=== PATIENT | female | born 1950 | race Two or more races ===

== ENCOUNTER 2020-02-20 05:55 | Inpatient (IN) | payer MEDICARE, OTHER ==
[~2020-02-20] VITALS: Ht 157.5 cm; Wt 69.4 kg
--- NOTE | 2020-02-20 06:08 | NUR ---
HAILEY C/O ALTERED MENTAL STATUS [id number]. PER FACILITY, PT IS USUALLY AWAKE AND COMBATIVE. PT AAOX0 TACHYCARDIC AND TACHYPNEIC. O2 IS 98% VIA NC 2L. PT APPEARS PALE AND LETHARGIC. PT REACTS ONLY TO PAIN. LFT FOREARM 20 G IV. PT IS CONNECTED TO MONITOR AND POX. CALL LIGHT WITHIN REACH. WILL CONTINUE TO MONITOR
--- NOTE | 2020-02-20 06:10 | NUR ---
URINE COLLECTED AND SENT TO LAB
--- NOTE | 2020-02-20 06:10 | NUR ---
LAB AT BEDSIDE
[2020-02-20] MEDS ORDERED: ACETAMINOPHEN 650 MG/SUPP.RECT RC ONE ×2 (06:17→06:30)
[2020-02-20] MEDS ORDERED: IV NS 0.9% 500 ML IV ONE (06:30)
--- NOTE | 2020-02-20 06:52 | NUR ---
daughter, goldie [phone]
--- NOTE | 2020-02-20 07:17 | NUR ---
urine collected and sent to lab
[2020-02-20 07:39] LABS: CALCIUM, SERUM 10.8 mg/dL (8.5-10.1); CARBON DIOXIDE 25 mmol/L (21-32); CREATININE 4.8 mg/dL (0.6-1.3); GLUCOSE 112 mg/dL (74-106)
[2020-02-20 07:49] LABS: ALANINE AMINOTRANSFERASE 57 U/L (12-78); ALBUMIN 2.7 g/dL (3.4-5.0); ALKALINE PHOSPHATASE 104 U/L (46-116); ASPARTATE AMINOTRANSFERASE 24 U/L (15-37); B-TYPE NATRIURETIC PEPTIDE 731 PG/ML (0-125); BILIRUBIN,TOTAL 0.3 mg/dL (0.2-1.0); SODIUM SERUM 181 mmol/L (136-145); TOTAL PROTEIN, SERUM 6.8 g/dL (6.4-8.2)
[2020-02-20 07:50] LABS: CHLORIDE 142 mmol/L (98-107); POTASSIUM 6.4 mmol/L (3.5-5.1); UREA NITROGEN, BLOOD 199 mg/dL (7-18)
[2020-02-20] MEDS ORDERED: ASCO-352 GT (07:50)
[2020-02-20] MEDS ORDERED: POTA20PA3 GT (07:50)
[2020-02-20] MEDS ORDERED: FAMO20TA8 GT (07:50)
[2020-02-20] MEDS ORDERED: MULT-447 GT (07:50)
[2020-02-20] MEDS ORDERED: NITR0.4T48 SL (07:50)
[2020-02-20] MEDS ORDERED: DOCU50LI GT (07:50)
[2020-02-20] MEDS ORDERED: METO25TA20 GT (07:50)
[2020-02-20] MEDS ORDERED: HEPA50008 SQ (07:50)
[2020-02-20] MEDS ORDERED: FERR300L GT (07:50)
[2020-02-20] MEDS ORDERED: ACET-868 GT (07:50)
[2020-02-20] MEDS ORDERED: HYDR-4384 GT (07:50)
[2020-02-20] MEDS ORDERED: POLY17PO4 GT (07:50)
[2020-02-20] MEDS ORDERED: LISI-603 GT (07:50)
[2020-02-20] MEDS ORDERED: HYDR-4076 GT (07:50)
[2020-02-20 07:53] LABS: C-REACTIVE PROTEIN 0.8 mg/dL (0.0-0.9); CREATINE KINASE, TOTAL 689 U/L (26-192); FERRITIN 149 ng/mL (8-388)
[2020-02-20 08:15] LABS: BASOPHILS % (AUTO) 0.2 % (0.0-2.0); EOSINOPHILS % (AUTO) 0.1 % (0.0-6.0); HEMATOCRIT 33 % (33-45); HEMOGLOBIN 9.6 g/dL (11.5-14.8); MEAN CORPUSCULAR HGB CONC 29 g/dl (31.0-36.0); MEAN CORPUSCULAR VOLUME 111 fL (82-100); MONOCYTES # (AUTO) 0.8 /CMM (0.1-1.30); NEUTROPHILS # (AUTO) 8.2 /CMM (1.8-8.9); NEUTROPHILS % (AUTO) 67.7 % (43.0-81.0); PLATELET COUNT (AUTO) 92 /CMM (150-450); RED BLOOD CELL COUNT(AUTO) 2.93 MIL/uL (4.0-5.2)
--- NOTE | 2020-02-20 08:57 | NUR ---
[facility]
[2020-02-20] MEDS ORDERED: SODIUM BICARBONATE SYR 50 MEQ/50 ML DISP.SYRIN IV ONE (09:00)
[2020-02-20] MEDS ORDERED: ALBUTEROL FS 2.5 MG/3 ML VIAL.NEB NEB ONE (09:00)
[2020-02-20] MEDS ORDERED: FUROSEMIDE 40 MG/4 ML VIAL IV ONE (09:00)
[2020-02-20] MEDS ORDERED: IV NS 0.9% 1,000 ML IV ONE (09:00)
[2020-02-20] MEDS ORDERED: CALCIUM CHLORIDE 1,000 MG/10 ML DISP.SYRIN IV ONE (09:00)
[2020-02-20] MEDS ORDERED: INSULIN REGULAR, HUMAN 100 UNIT/ML 10 ML VIAL IV ONE (09:00)
[2020-02-20] MEDS ORDERED: DEXTROSE 50%-WATER 50 ML DISP.SYRIN IV ONE (09:00)
[2020-02-20] MEDS ORDERED: SODIUM BICARBONATE SYR 50 MEQ/50 ML DISP.SYRIN ONE (09:18)
[2020-02-20] MEDS ORDERED: DEXTROSE 50%-WATER 50 ML DISP.SYRIN ONE (09:18)
[2020-02-20] MEDS ORDERED: INSULIN REGULAR, HUMAN 100 UNIT/ML 10 ML VIAL ONE (09:18)
[2020-02-20] MEDS ORDERED: CALCIUM CHLORIDE 1,000 MG/10 ML DISP.SYRIN ONE (09:18)
[2020-02-20] MEDS ORDERED: FUROSEMIDE 20 MG/2 ML VIAL ONE (09:18)
[2020-02-20 09:40] LABS: D-DIMER 0.58 mg/L(FEU (0.17-0.50)
[2020-02-20 09:53] LABS: BILIRUBIN,URINE SMALL (NEGATIVE); BLOOD, URINE MODERATE Ery/uL (NEGATIVE); COLOR,URINE YELLOW (YELLOW); LEUKOCYTE ESTERASE ,URINE LARGE (NEGATIVE); NITRITE, URINE NEGATIVE (NEGATIVE); PH,URINE 8.5 (5.0-8.0); PROTEIN,URINE >=300 mg/dl (NEGATIVE); UGLUCOSE NEGATIVE (NEGATIVE); UROBILINOGEN,URINE 0.2 EU/dL (0.2)
--- NOTE | 2020-02-20 10:13 | NUR ---
CALLED [facility] [phone] SERAFIN PAGED.
[2020-02-20 10:33] LABS: WBC,URINE TOO NUMEROUS TO COUN /HPF (0-3)
[2020-02-20 10:34] LABS: BACTERIA,URINE Moderate /HPF (None Seen); SQUAMOUS EPITHELIAL CELL,UR Moderate /HPF (None Seen); URINE AMORPHOUS PHOSPHATES Many /HPF (None Seen)
[2020-02-20] MEDS ORDERED: NITROGLYCERIN 0.4 MG/TAB BOTTLE SL PRN (11:00)
[2020-02-20] MEDS ORDERED: hydrALAZINE HCL 25 MG TABLET GT PRN (11:00)
[2020-02-20] MEDS ORDERED: ONDANSETRON HCL/PF 4 MG/2 ML VIAL IVP PRN (11:00)
[2020-02-20] MEDS ORDERED: ZOLPIDEM TARTRATE 5 MG TABLET PO PRN (11:00)
[2020-02-20] MEDS ORDERED: MAG HYDROX/AL HYDROX/SIMETH 30 ML UDC PO PRN (11:00)
[2020-02-20] MEDS ORDERED: HYDROCODONE/APAP 5/325MG TABLET PO PRN (11:00)
[2020-02-20] MEDS ORDERED: ACETAMINOPHEN 325 MG TABLET PO PRN (11:00)
[2020-02-20] MEDS ORDERED: MAGNESIUM HYDROXIDE 30 ML UDC PO PRN (11:00)
[2020-02-20] MEDS ORDERED: Z GUARD REMEDY 2 OZ OINT TP PRN (11:00)
[2020-02-20 11:41] LABS: BILIRUBIN,DIRECT 0.1 mg/dL (0.0-0.2)
--- NOTE | 2020-02-20 11:43 | NUR ---
PT IN BED SLEEPING. NAD NOTED.
--- NOTE | 2020-02-20 12:30 | NUR ---
pharmacy called for medication
[2020-02-20] MEDS ORDERED: CEFTRIAXONE 1 G in IV D5W 50 ML IV ONE (13:00)
[2020-02-20 13:24] LABS: EOSINOPHILS % (MANUAL) 1 % (0-4); LYMPHOCYTES % (MANUAL) 22 % (16-48); MONOCYTES % (MANUAL) 6 % (0-11.0); NEUTROPHILS % (MANUAL) 71 (42-76)
[2020-02-20] MEDS: IV NS 0.9% 1,000 ML IV SCH ×2 (14:11→20:33)
[2020-02-20] MEDS: METOPROLOL TARTRATE 25 MG TABLET GT SCH ×2 (14:12→18:00)
--- NOTE | 2020-02-20 14:13 | NUR ---
LOPRESSOR NOT GIVEN D/T BP IS NOTED @ 92/67.
[2020-02-20] MEDS: HEPARIN SODIUM, PORCINE 5000 UNITS/1 ML VIAL SQ SCH ×2 (14:28→21:26)
--- NOTE | 2020-02-20 15:34 | NUR ---
GOT BED 113-1
--- NOTE | 2020-02-20 16:15 | NUR ---
ISABELLE PT'S DAUGHTER UPDATED REGARDING HER MOTHER.
--- NOTE | 2020-02-20 16:26 | NUR ---
REPORT GIVENT Allie STRONG RN FOR PENNY.
--- NOTE | 2020-02-20 16:38 | NUR ---
PT TRANSPORTED TO [facility] WITH EMT AND RN AT BEDSIDE W/ ACLS PROTOCOL. NAD NOTED.
[2020-02-20 17:00] VITALS: BP 95/63
--- NOTE | 2020-02-20 17:00 | NUR ---
PT RECEIVED IN BED, NONVERBAL. RESPONSIVE TO STRONG TACTILE STIMULI. PT IS ON 4L O2 95-97%. NO RESPIRATORY DISTRESS OR SOB. PT HAS G-TUBE COVERED WITH ABD BINDER. PT HAS LFA 20 AND RIGHT HAND 20 SALINE LOCKED. VITALS 95/63, RESPIRATORY 30, PUSLE 98
[2020-02-20] MEDS ORDERED: VANCOMYCIN 500 MG in IV D5W 100 ML IV PRN (19:30)
--- NOTE | 2020-02-20 19:48 | NUR ---
PT REMAINS IN BED, NONVERBAL. PT HAS NO RESPIRATORY DISTRESS OR SOB. PT ON MONITOR SHOWING ST 100s. LFA AND R HAND IV SITES REMAIN INTACT. NO SIGNS OF INFECTION OR INFILTRATION. BED IN LOCKED LOWEST POSITION, CALL LIGHT WITHIN REACH, ALL SAFETY MEASURES IN PLACE, REPORT GIVEN TO ONCOMING RN FOR PENNY
--- NOTE | 2020-02-20 19:50 | NUR ---
RN ANGIOGRAPHY OPENING NOTES RECEIVED PATIENT IN BED, OBTUNDED NON VERBAL, RESPONDS TO TACTILE/PAINFUL STIMULI. TACHYPNEIC ON OXYGEN AT 4L/MIN VIA NASAL CANNULA, LATEST SPO2 95%. LEFT FOREARM G20/RIGHT HAND G20 IV LINES INTACT AND PATENT, FLUSHING WELL WITH NO BLEEDING OR S/S OF INFILTRATION NOTED. ON CARDIAC MONITORING WITH SINUS TACHYCARDIA AT 105bpm. NO S/S OF PAIN/DISCOMFORT NOTED AT THIS TIME. BED LOW AND LOCKED ON SEMI FOWLERS POSITION. MAINTAINED ON CONTACT/DROPLET ISOLATION FOR COVID19, PROPER HAND WASHING AND ISOLATION PRECAUTIONS OBSERVED. CALL LIGHT IN REACH. WILL CONTINUE TO MONITOR
[2020-02-20 20:00] VITALS: BP 104/65
[2020-02-20] MEDS ORDERED: VANCOMYCIN 0.75 GM in IV D5W 250 ML IV ONE (20:00)
[2020-02-20] MEDS: DOCUSATE SODIUM LIQ 100 MG/10 ML UDC GT SCH (20:20)
[2020-02-20] MEDS: MEROPENEM 500 MG in IV NS 0.9% 50 ML IV SCH (21:45)
[2020-02-21] VITALS: BP 113/73
[2020-02-21 00:06] LABS: ALBUMIN 2.8 g/dL (3.4-5.0); BILIRUBIN,TOTAL 0.3 mg/dL (0.2-1.0); CALCIUM, SERUM 11.1 mg/dL (8.5-10.1); CREATININE 4.3 mg/dL (0.6-1.3); POTASSIUM 4.8 mmol/L (3.5-5.1); TOTAL PROTEIN, SERUM 6.9 g/dL (6.4-8.2)
[2020-02-21 00:11] LABS: THYROID STIMULATING HORMONE 1.576 uIU/mL (0.358-3.74)
--- NOTE | 2020-02-21 00:17 | NUR ---
0017 CRITICAL NA+ 185, CL 145, BUN 180 RELAYED TO BRAYDEN ROOT, AWAITING CALL BACK.
[2020-02-21] MEDS: METOPROLOL TARTRATE 25 MG TABLET GT SCH ×4 (00:50→17:02)
--- NOTE | 2020-02-21 01:45 | NUR ---
0145 BRAYDEN ROOT REPLIED WITH ORDER TO FLUSH GT WITH 150CC FREE WATER EVERY 4 HOURS AND TO KEEP IV FLUIDS ORDERED. ORDER NOTED AND CARRIED OUT.
[2020-02-21 04:00] VITALS: BP 135/66
[2020-02-21] MEDS: HEPARIN SODIUM, PORCINE 5000 UNITS/1 ML VIAL SQ SCH ×2 (04:54→12:38)
[2020-02-21] MEDS: IV NS 0.9% 1,000 ML IV SCH (06:29)
--- NOTE | 2020-02-21 06:40 | NUR ---
SERVICE SPECIALIST CLOSING NOTES PATIENT IN BED, OBTUNDED NON VERBAL, RESPONDS TO TACTILE/PAINFUL STIMULI. AFEBRILE WITH NO S/S OF DISTRESS OBSERVED. LEFT FOREARM G20/RIGHT HAND G20 IV LINES PATENT AND FLUSHING WELL. MAINTAINED ON CARDIAC MONITORING WITH NSR AT 98bpm. NO S/S OF PAIN/DISCOMFORT NOTED AT THIS TIME. BED LOW AND LOCKED ON SEMI FOWLERS POSITION. CALL LIGHT IN REACH. WILL ENDORSE TO MORNING SHIFT FOR PENNY.
--- NOTE | 2020-02-21 07:30 | NUR ---
RN OPENING NOTE - MARIA D Received patient asleep in bed appears calm and relaxed. No signs of distress. On NC 4L tolerating well. Patient eyes remains close when spoke to and response to pain only. Tele reading SR 80-90bpm. Has king catheter draining clear yellow urine. GT feeding Jevity 1.2 @ 65ml/hr tolerating well no residual. Aspirated and auscultated confirmed positive placement. On abdominal binder. Has L forearm #20 flushes well and R hand #20 running NS @ 100ml/hr. No signs of pain or discomfort. Safety measures maintained. Call light within reach. Bed locked and on lowest position. Will cont to monitor,.
[2020-02-21 08:00] VITALS: BP 97/59
[2020-02-21] MEDS: DOCUSATE SODIUM LIQ 100 MG/10 ML UDC GT SCH ×2 (08:52→17:01)
[2020-02-21] MEDS: FERROUS SULFATE UDC 300 MG/5 ML UDC GT SCH (08:52)
[2020-02-21] MEDS: MULTIVITAMINS,THERAGRAN 1 UDTAB TABLET GT SCH (08:52)
[2020-02-21] MEDS: DEXAMETHASONE SOD PHOSPHATE 10 MG/ML VIAL IV SCH (08:52)
[2020-02-21] MEDS: FAMOTIDINE (20 MG) 20 MG TABLET GT SCH (08:52)
[2020-02-21] MEDS: POLYETHYLENE GLYCOL 3350 17 GM POWD.PACK GT SCH (08:52)
[2020-02-21] MEDS: ASCORBIC ACID 500 MG TABLET GT SCH (08:52)
[2020-02-21] MEDS ORDERED: LISINOPRIL (20MG) 20 MG TABLET GT SCH (09:00)
[2020-02-21] MEDS ORDERED: POTASSIUM CHLORIDE 20 MEQ POWDER PACKET GT SCH (09:00)
[2020-02-21 09:48] LABS: BASOPHILS % (AUTO) 0.2 % (0.0-2.0); EOSINOPHILS % (AUTO) 0.1 % (0.0-6.0); HEMATOCRIT 25 % (33-45); HEMOGLOBIN 7.1 g/dL (11.5-14.8); LYMPHOCYTES # (AUTO) 1.1 /CMM (0.8-4.8); LYMPHOCYTES % (AUTO) 15.6 % (20.0-44.0); MEAN CORPUSCULAR HGB CONC 29 g/dl (31.0-36.0); MEAN CORPUSCULAR VOLUME 115 fL (82-100); MONOCYTES # (AUTO) 0.3 /CMM (0.1-1.30); NEUTROPHILS # (AUTO) 5.7 /CMM (1.8-8.9); NEUTROPHILS % (AUTO) 80.1 % (43.0-81.0); PLATELET COUNT (AUTO) 77 /CMM (150-450); RED BLOOD CELL COUNT(AUTO) 2.14 MIL/uL (4.0-5.2); WHITE BLOOD COUNT (AUTO) 7.1 K/uL (4.3-11.0)
--- NOTE | 2020-02-21 10:30 | NUR ---
SPOKE TO HERON DAUGHTER [phone] SHE IS CONSIDERING NOT PUTTING HER MOM BACK TO [place] [place]. INFORMED BOIL OFF MACHINE OPERATOR CLOTH.
[2020-02-21 10:41] LABS: CALCIUM, SERUM 10.5 mg/dL (8.5-10.1); CREATININE 3.8 mg/dL (0.6-1.3); PHOSPHORUS 3.9 mg/dL (2.5-4.9); POTASSIUM 4.8 mmol/L (3.5-5.1)
--- NOTE | 2020-02-21 10:58 | NUR ---
FLU VACCINE ON 12/11/2019 PNEUMONIA VACCINE ON 06/24/2019 GIVEN BY ALEXSANDRAKeven EDWARDS SPOKE TO ESTHER,
[2020-02-21 10:59] LABS: MAGNESIUM 4.1 mg/dL (1.8-2.4)
--- NOTE | 2020-02-21 11:03 | NUR ---
CRITICAL LAB VALUE INFORMED DR REEDER AND DR BETANCOURT AWAITING RESPONSE MAGNESIUM 4.1 SODIUM 182 CHLORIDE 145
[2020-02-21 12:00] VITALS: BP 107/72
--- NOTE | 2020-02-21 13:33 | NUR ---
REPORT GIVEN TO JOYCE STOCKTON FOR PENNY.
--- NOTE | 2020-02-21 13:40 | NUR ---
MALARIOLOGIST NOTE RECEIVED PATIENT FROM [place]. PATIENT IN NO ACUTE DISTRESS. NO SOB NOTED. PATIENT BREATHING IS EVEN AND UNLABORED. PATIENT IN BED RESTING COMFORTABLY. PATIENT BED ALARM IS ON. PATIENT BED IS LOCKED AND IN LOWEST POSITION. CALL LIGHT WITHIN REACH. WILL CONTINUE TO MONITOR.
[2020-02-21 16:00] VITALS: BP 95/50
[2020-02-21] MEDS: IV 1/2NS 1000 ML 1,000 ML IV PRN (17:06)
--- NOTE | 2020-02-21 18:50 | NUR ---
PROOFER BLACK AND WHITE NOTE PATIENT IS IN BED RESTING COMFORTABLY. PATIENT IS IN NO ACUTE DISTRESS. NO SOB NOTED. PATIENTS BREATHING IS EVEN AND UNLABORED. PATIENT IS ON THE POLISHING PAD MOUNTER READING SINUS RHYTHM 70. PATIENT KEPT CLEAN DRY, AND COMFORTABLE THROUGHOUT THE SHIFT. GTUBE PATENT AND INTACT. NO FACIAL GRIMACING NOTED. PATIENTS BED ALARM IS ON. PATIENT BED IS LOCKED AND IN LOWEST POSITION. CALL LIGHT IS WITHIN REACH. ENDORSE TO THE SUPERVISOR COOK HOUSE NURSE FOR PENNY.
--- NOTE | 2020-02-21 19:15 | NUR ---
RN OPENING NOTES PRECEIVED PT AWAKE IN BED. NONVERBAL. ISOLATION PRECAUTIONS IN PLACE FOR COVID POSITIVE RESULT. PT IS ON 4L OF O2 VIA NC. TOLERATING WELL. PT IS NOT EXPERIENCING SOB OR RESP DISTRESS AT THIS TIME. TELE MONITORING IN PLACE. BREATHING IS EVEN. PT SHOWS NSR HEART RATE OF 100 NORMAL TO PT BASELINE. GTUBE AUSCULTATED TO CONFIRM PLACEMENT WITH ANOTHER NURSE. PATENT. JEVITY RUNNING AT 65ML/HR. IV SITE FLUSHED ASEPTICALLY. PT BELONGINGS AT BEDSIDE. SAFETY MEASURES IN PLACE. HOB ELEVATED. SIDE RAILS UP X2. BED LOCKED IN LOWEST POSITION WITH BED ALARM ON. CALL LIGHT WITHIN REACH WILL CONTINUE TO MONITOR.
[2020-02-21 20:00] VITALS: BP 107/65
[2020-02-21] MEDS: MEROPENEM 500 MG in IV NS 0.9% 50 ML IV SCH (22:01)
[2020-02-22] VITALS: BP 98/60
[2020-02-22] MEDS: IV 1/2NS 1000 ML 1,000 ML IV PRN (03:41)
[2020-02-22 04:00] VITALS: BP 108/67
--- NOTE | 2020-02-22 04:00 | NUR ---
RN NOTE RIGHT HAND IV WAS DISLODGED. APPLIED PRESSURE AND DRESSING. NO SIGNS OF INFECTION.
[2020-02-22] MEDS: METOPROLOL TARTRATE 25 MG TABLET GT SCH ×4 (06:00→17:25)
[2020-02-22 06:14] LABS: BASOPHILS % (AUTO) 0.2 % (0.0-2.0); EOSINOPHILS % (AUTO) 0.1 % (0.0-6.0); HEMATOCRIT 26 % (33-45); HEMOGLOBIN 7.7 g/dL (11.5-14.8); LYMPHOCYTES # (AUTO) 0.8 /CMM (0.8-4.8); LYMPHOCYTES % (AUTO) 14.7 % (20.0-44.0); MEAN CORPUSCULAR HGB CONC 30 g/dl (31.0-36.0); MEAN CORPUSCULAR VOLUME 111 fL (82-100); MONOCYTES # (AUTO) 0.2 /CMM (0.1-1.30); MONOCYTES % (AUTO) 2.8 % (2.0-12.0); NEUTROPHILS # (AUTO) 4.6 /CMM (1.8-8.9); NEUTROPHILS % (AUTO) 82.2 % (43.0-81.0); PLATELET COUNT (AUTO) 63 /CMM (150-450); RED BLOOD CELL COUNT(AUTO) 2.33 MIL/uL (4.0-5.2); WHITE BLOOD COUNT (AUTO) 5.6 K/uL (4.3-11.0)
[2020-02-22 06:25] LABS: BILIRUBIN,URINE NEGATIVE (NEGATIVE); BLOOD, URINE MODERATE Ery/uL (NEGATIVE); COLOR,URINE YELLOW (YELLOW); LEUKOCYTE ESTERASE ,URINE LARGE (NEGATIVE); NITRITE, URINE NEGATIVE (NEGATIVE); PROTEIN,URINE 100 mg/dl (NEGATIVE); UGLUCOSE 250 MG/DL mg/dL (NEGATIVE); UROBILINOGEN,URINE 0.2 EU/dL (0.2)
[2020-02-22 06:32] LABS: CREATININE, URINE 38.6 MG/DL (30.0-125.0); URINE TOTAL PROTEIN 124.4 mg/dL (0-11.9)
[2020-02-22 06:46] LABS: BACTERIA,URINE Many /HPF (None Seen); SQUAMOUS EPITHELIAL CELL,UR Few /HPF (None Seen); WBC,URINE 21-50 /HPF (0-3)
[2020-02-22 06:47] LABS: TRIPLE PHOSPHATE CRYSTAL,UR Moderate /HPF (None Seen); URINE AMORPHOUS PHOSPHATES Moderate /HPF (None Seen)
--- NOTE | 2020-02-22 06:53 | NUR ---
RN CLOSING NOTE PATIENT REMAINS IN BED, NO RESPIRATORY DISTRESS NOTED, CONTINUE ON O2 VIA NC AT 4LPM. O2 SAT AT 98%. TELE MONITOR SHOWS SINUS TACHY HR 105. GT PATENT. GT FEEDING OF JEVITY 1.2 TOLERATING WELL, NO RESIDUALS NOTED, FLUSHED WITH 250 ML OF WATER Q6H ORDERED. KEPT HOB ELEVATED. NO S/SX OF ASPIRATION NOTED. IVF 0.45 NS RUNNING AT 100 ML/HR NO SIGNS OF INFILTRATION. VENTURA CATH INDWELLING WELL, CLEAR YELLOW URINE OUTPUT. ALL SAFETY MEASURES IMPLEMENTED PER PROTOCOL, BED LOCKED IN LOWEST POSITION. SIDE RAILS UP. CALL LIGHT WITHIN REACH. WILL ENDORSE TO AM SHIFT FOR PENNY.
--- NOTE | 2020-02-22 07:10 | NUR ---
RN OPENING NOTES RECEIVED PT AWAKE IN BED. NONVERBAL. ISOLATION PRECAUTIONS IN PLACE FOR COVID. ON 4L OF O2 VIA NC SATURATING @98%. NO SOB OR ANY DISTRESS AT THIS TIME. TELE MONITORING SHOWS ST @100S. GTUBE AUSCULTATED TO CONFIRM POSITIVE PLACEMENT. JEVITY 1.2 RUNNING AT 65ML/HR. IV SITE ON RAC #22 INTACT AND PATENT. 1/2 NS RUNNING @100ML/HR. SAFETY MEASURES IN PLACE. CALL LIGHT WITHIN REACH. HOB ELEVATED. BED LOCKED AND IN LOWEST POSITION WITH SIDE RAILS UP X2. BED ALARM ON. WILL CONTINUE TO MONITOR.
[2020-02-22 07:18] LABS: CALCIUM, SERUM 10.3 mg/dL (8.5-10.1); CREATININE 3.3 mg/dL (0.6-1.3); POTASSIUM 4.4 mmol/L (3.5-5.1)
[2020-02-22 08:00] VITALS: BP 95/50
[2020-02-22] MEDS: POLYETHYLENE GLYCOL 3350 17 GM POWD.PACK GT SCH (08:55)
[2020-02-22] MEDS: DEXAMETHASONE SOD PHOSPHATE 10 MG/ML VIAL IV SCH (08:55)
[2020-02-22] MEDS: DOCUSATE SODIUM LIQ 100 MG/10 ML UDC GT SCH ×2 (08:55→17:04)
[2020-02-22] MEDS: FAMOTIDINE (20 MG) 20 MG TABLET GT SCH (08:55)
[2020-02-22] MEDS: ASCORBIC ACID 500 MG TABLET GT SCH (08:55)
[2020-02-22] MEDS: FERROUS SULFATE UDC 300 MG/5 ML UDC GT SCH (08:55)
[2020-02-22] MEDS: MULTIVITAMINS,THERAGRAN 1 UDTAB TABLET GT SCH (08:55)
[2020-02-22 09:49] LABS: BAND % (MANUAL) 2 % (0.0-5.0); NEUTROPHILS % (MANUAL) 72 (42-76)
[2020-02-22 09:50] LABS: EOSINOPHILS % (MANUAL) 1 % (0-4); LYMPHOCYTES % (MANUAL) 16 % (16-48); MONOCYTES % (MANUAL) 6 % (0-11.0); MYELOCYTES % 1 % (0-0)
[2020-02-22 12:00] VITALS: BP 124/58
[2020-02-22 12:04] LABS: EOSINOPHIL,URINE None Seen
[2020-02-22 16:00] VITALS: BP 108/61
--- NOTE | 2020-02-22 17:00 | NUR ---
RN NOTE BP OF 108/61. INFORMED DR. BERNSTEIN. TO HOLD LOPRESSOR. CARRIED OUT. WILL CONTINUE TO MONITOR
[2020-02-22] MEDS: IV D5W 1,000 ML IV PRN (17:53)
--- NOTE | 2020-02-22 19:28 | NUR ---
RN CLOSING NOTES PT RESTING IN BED. NONVERBAL. ISOLATION PRECAUTIONS IN PLACE FOR COVID. ON 4L OF O2 VIA NC SATURATING @98%. NO SOB OR ANY DISTRESS AT THIS TIME. TELE MONITORING SHOWS ST @100S. GTUBE AUSCULTATED TO CONFIRM POSITIVE PLACEMENT. JEVITY 1.2 RUNNING AT 65ML/HR. IV SITE ON RAC #22 INTACT AND PATENT. D5W @125ML/HR. SAFETY MEASURES IN PLACE. CALL LIGHT WITHIN REACH. HOB ELEVATED. BED LOCKED AND IN LOWEST POSITION WITH SIDE RAILS UP X2. BED ALARM ON. WILL ENDORSE TO NIGHT NURSE FOR PENNY.
[2020-02-22 20:00] VITALS: BP 128/66
--- NOTE | 2020-02-22 20:00 | NUR ---
RN NOTE RECEIVED PT IN BED, PT IS NON VERBAL AND OPENS EYES TO TOUCH, PT IS ON 4 L VIA NC SATING 100, PT IS ON TELE MONITOR SHOWING SR HR IN 90s. SAFETY MEASURES IN PLACE.
[2020-02-22] MEDS: CEFTRIAXONE 1 G in IV D5W 50 ML IV SCH (21:37)
[2020-02-23] VITALS: BP 125/66
[2020-02-23] MEDS: METOPROLOL TARTRATE 25 MG TABLET GT SCH ×4 (00:16→17:41)
--- NOTE | 2020-02-23 02:00 | NUR ---
RN NOTES: RECEIEVED ENDORSEMENT FROM JUAN ANTONIO, ASLEEP NON, VERBAL PATIENT, WITH O2 AT 4L/MIN VIA NC SR-80'S, SKIN INTACT, ON PEG FEED OF JEVITY 1.2 AT 65 ML/HR, ON VENTURA CATH DRAINING INTO YELLOWISH COLORED URINE AT 100CC LEVEL. [id number] INTACT WITH IVF OF D5W AT 125 ML/HR ONGOING, NON LABORED BREATHING, KEPT ON SEMI FOWLERS POSITION, FALL, SAFETY AND ASPIRATION PRECAUTION OBSERVED.BED LOW AND LOCKED, CALL LIGHT WITHIN EASY REACH.
--- NOTE | 2020-02-23 02:02 | NUR ---
RN NOTE REPORT GIVEN FOR TO THE NURSE FOR PENNY.
[2020-02-23] MEDS: JEVITY 1.2 CAL 1,000 ML BOTTLE GT PRN ×2 (02:19→21:59)
--- NOTE | 2020-02-23 02:24 | NUR ---
RN NOTES: JEVITY 1.2 AT 65 ML/HR VIA FEEDING PUMP CONSUMED AND REPLACED WITH NEW BOTTLE, UNABLE TO SCAN, MANUALLY ENTERED THE BARCODE. -FEEDING START AT AROUND 0220.
[2020-02-23] MEDS: IV D5W 1,000 ML IV PRN ×3 (02:41→21:59)
--- NOTE | 2020-02-23 02:42 | NUR ---
RN NOTES: IVF OF D5W AT 125 ML/HR CONSUMED, NEW BOTTLE STARTED AT 0241.
--- NOTE | 2020-02-23 03:15 | NUR ---
RN NOTES: TURNING AND REPOSITIONING DONE, MORNING CARE DONE, BLE OFF LOADED. ASPIRATION PRECAUTION OBSERVED.
[2020-02-23 04:00] VITALS: BP 110/56
--- NOTE | 2020-02-23 04:12 | NUR ---
RN NOTES: AT 0400 ENDORSED BACK TO JUAN ANTONIO.
[2020-02-23 06:44] LABS: BASOPHILS % (AUTO) 0.1 % (0.0-2.0); HEMATOCRIT 22 % (33-45); LYMPHOCYTES # (AUTO) 0.8 /CMM (0.8-4.8); LYMPHOCYTES % (AUTO) 10.5 % (20.0-44.0); MEAN CORPUSCULAR HGB CONC 31 g/dl (31.0-36.0); MEAN CORPUSCULAR VOLUME 107 fL (82-100); MONOCYTES # (AUTO) 0.1 /CMM (0.1-1.30); MONOCYTES % (AUTO) 1.5 % (2.0-12.0); NEUTROPHILS # (AUTO) 6.3 /CMM (1.8-8.9); NEUTROPHILS % (AUTO) 87.9 % (43.0-81.0); PLATELET COUNT (AUTO) 62 /CMM (150-450); RED BLOOD CELL COUNT(AUTO) 2.09 MIL/uL (4.0-5.2); WHITE BLOOD COUNT (AUTO) 7.2 K/uL (4.3-11.0)
[2020-02-23 07:02] LABS: ALBUMIN 2.2 g/dL (3.4-5.0); BILIRUBIN,TOTAL 0.3 mg/dL (0.2-1.0); CALCIUM, SERUM 9.6 mg/dL (8.5-10.1); CREATININE 2.7 mg/dL (0.6-1.3); MAGNESIUM 3.2 mg/dL (1.8-2.4); PHOSPHORUS 3.5 mg/dL (2.5-4.9); TOTAL PROTEIN, SERUM 6.2 g/dL (6.4-8.2)
--- NOTE | 2020-02-23 07:20 | NUR ---
RN OPENING NOTE - MARIA D Received patient asleep in bed appears calm and relaxed. No signs of distress. On NC 4L o2 sat 96%. Patient is obtunded. Smiled but non verbal. Tele reading SR 90-100bpm. Mabry catheter draining cloudy yellow urine by gravity. On GT feeding Jevity 1.2 @ 65ml/hr to be turned off at 8am and turned back ON at 12noon. Patient has R Hand #22 running D5W @125ml/hr. Safety measures maintained. Bed locked and on lowest position. Siderails up x2. Hob elevated. Will cont to monitor.
--- NOTE | 2020-02-23 07:36 | NUR ---
PT REMAINED STABLE DURING MY SHIFT NO ACUTE CHANGES REPORT GIVEN TO INCOMING SHIFT FOR PENNY.
[2020-02-23 08:00] VITALS: BP 114/50
[2020-02-23] MEDS: ASCORBIC ACID 500 MG TABLET GT SCH (08:44)
[2020-02-23] MEDS: DOCUSATE SODIUM LIQ 100 MG/10 ML UDC GT SCH ×2 (08:44→17:41)
[2020-02-23] MEDS: FAMOTIDINE (20 MG) 20 MG TABLET GT SCH (08:44)
[2020-02-23] MEDS: MULTIVITAMINS,THERAGRAN 1 UDTAB TABLET GT SCH (08:44)
[2020-02-23] MEDS: FERROUS SULFATE UDC 300 MG/5 ML UDC GT SCH (08:44)
[2020-02-23] MEDS: POLYETHYLENE GLYCOL 3350 17 GM POWD.PACK GT SCH (08:44)
[2020-02-23] MEDS: DEXAMETHASONE SOD PHOSPHATE 10 MG/ML VIAL IV SCH (08:45)
[2020-02-23 09:18] LABS: PTH, INTACT 79 pg/mL (15-65)
[2020-02-23 12:00] VITALS: BP 134/71
[2020-02-23 15:10] LABS: BAND % (MANUAL) 2 % (0.0-5.0); LYMPHOCYTES % (MANUAL) 11 % (16-48); MONOCYTES % (MANUAL) 3 % (0-11.0); NEUTROPHILS % (MANUAL) 84 (42-76)
[2020-02-23 16:00] VITALS: BP 133/85
--- NOTE | 2020-02-23 19:21 | NUR ---
RN CLOSING NOTE - TELE Patient was transferred to [facility] in stable condition. On NC 4L tolerating well. Jevity 1.2 running 65ml/hr has abdominal binder. Patient has R hand #22 running D5W @ 125ml/hr. All due meds given. Vital signs within normal limits. Kept clean and comfortable. Endorsed to security shift manager nurse for noelle.
--- NOTE | 2020-02-23 19:30 | NUR ---
RECEIVED PT ON BED OBTUNDED ABLE TO OPEN EYES TO DEEP PAIN NOT RESPONDING TO ANY COMMAND, ON O2 4L VIA NC SPO2@ 91% NO PAIN NOTED, HAVE GTUBE RESIDUAL 10ML PLACEMENT WAS CHECKED WITH ONGOING JEVITY @ 65ML/HR HAVE RHAND IV # 22 WITH PATENT AND FLUSHED WITH ONGOING D5W@125ML/HR INFUSING WELL TELE MONITOR READS SINUS TACHY 110'S DROPLET ISOALTION MAINTAINED FOR COVID 19 BED ON LOWEST POSITION AND LCOKED SIDE RAILS UP X2 WILL CONT TO MONITOR
[2020-02-23 20:00] VITALS: BP_SYST 112; BP_DIAS 61; BP_DIAS 91
[2020-02-23] MEDS: CEFTRIAXONE 1 G in IV D5W 50 ML IV SCH (21:49)
[2020-02-24] VITALS: BP 121/55
[2020-02-24] MEDS: METOPROLOL TARTRATE 25 MG TABLET GT SCH ×4 (01:06→17:48)
--- NOTE | 2020-02-24 01:30 | NUR ---
PT SATURATION GOES DOWN TO 87% AND PT IS MORE TACHYPNIC WITH RR OF 43 RT PUT HER ON NON REBREATHER MASK 15L SPO2 GOES BACK TO 95% BUT PT RR STILL ON 40'S REPORTED IT TO ONCMIGEL LY PRESSURE CONTROLLER WITH NO NEW ORDER, WILL CONT TO MONITOR THE PT
[2020-02-24 04:00] VITALS: BP 113/56
[2020-02-24] MEDS: IV D5W 1,000 ML IV PRN ×2 (06:43→15:50)
--- NOTE | 2020-02-24 07:30 | NUR ---
PT ON BED ASLEEP STILL ON NON REBREATHER 15L SPO2 98% BUT STILL TACHYPNIC WITH RR 46, NO PAIN NOTED, ALL NEEDS ATTENDED TELE MONITOR READS SINUS TACHY 110'S DROPLET ISOLATION MAINTAINED BED ON LOWEST POSITION AND LOCKED SIDE RAILS UP X2 WILL ENDORSED TO AM SHIFT NURSE
--- NOTE | 2020-02-24 07:55 | NUR ---
PT RECEIVED IN BED, OBTUNDED, NONVERBAL. PT ON 15L NONREBREATHER, O2 SATURATION HIGH 90's. NO RESPIRATORY DISTRESS. PT ON MONITOR SHOWING ST. JEVITY RUNNING THROUGH G-TUBE AT 65 ML/HR. PT HAS RIGHT HAND #22 RUNNING D5W. MIDLINE TO BE REQUESTED, IF NEED FOR BLOOD TRANSFUSION. BED IN LOCKED LOWEST POSITION, CALL LIGHT WITHIN REACH, ALL SAFETY MEASURES IN PLACE. WILL CONTINUE TO MONITOR CLOSELY
[2020-02-24 08:00] VITALS: BP 126/86
[2020-02-24 08:10] LABS: BASOPHILS % (AUTO) 0.1 % (0.0-2.0); HEMATOCRIT 24 % (33-45); HEMOGLOBIN 7.4 g/dL (11.5-14.8); LYMPHOCYTES # (AUTO) 0.8 /CMM (0.8-4.8); LYMPHOCYTES % (AUTO) 11.2 % (20.0-44.0); MEAN CORPUSCULAR HGB CONC 31 g/dl (31.0-36.0); MEAN CORPUSCULAR VOLUME 110 fL (82-100); MONOCYTES # (AUTO) 0.1 /CMM (0.1-1.30); NEUTROPHILS # (AUTO) 6.6 /CMM (1.8-8.9); NEUTROPHILS % (AUTO) 86.7 % (43.0-81.0); PLATELET COUNT (AUTO) 55 /CMM (150-450); RED BLOOD CELL COUNT(AUTO) 2.22 MIL/uL (4.0-5.2); WHITE BLOOD COUNT (AUTO) 7.6 K/uL (4.3-11.0)
[2020-02-24 08:57] LABS: CALCIUM, SERUM 9.7 mg/dL (8.5-10.1); CREATININE 2.4 mg/dL (0.6-1.3); POTASSIUM 4.3 mmol/L (3.5-5.1)
[2020-02-24] MEDS: POLYETHYLENE GLYCOL 3350 17 GM POWD.PACK GT SCH (09:29)
[2020-02-24] MEDS: FERROUS SULFATE UDC 300 MG/5 ML UDC GT SCH (09:30)
[2020-02-24] MEDS: MULTIVITAMINS,THERAGRAN 1 UDTAB TABLET GT SCH (09:30)
[2020-02-24] MEDS: FAMOTIDINE (20 MG) 20 MG TABLET GT SCH (09:30)
[2020-02-24] MEDS: DOCUSATE SODIUM LIQ 100 MG/10 ML UDC GT SCH ×2 (09:30→17:48)
[2020-02-24] MEDS: DEXAMETHASONE SOD PHOSPHATE 10 MG/ML VIAL IV SCH (09:30)
[2020-02-24] MEDS: ASCORBIC ACID 500 MG TABLET GT SCH (09:31)
[2020-02-24 11:59] LABS: C-REACTIVE PROTEIN > 12.0 mg/dL (0.0-0.9)
[2020-02-24 12:00] VITALS: BP 119/70
[2020-02-24 12:56] LABS: BAND % (MANUAL) 3 % (0.0-5.0); LYMPHOCYTES % (MANUAL) 14 % (16-48); MONOCYTES % (MANUAL) 4 % (0-11.0); NEUTROPHILS % (MANUAL) 79 (42-76)
--- NOTE | 2020-02-24 14:20 | NUR ---
pt placed on high flow nasal canula per physician order. pt spo2 decreased. rn aware. spo2 increased to 90% with hfnc Addendum: 02/24/20 at 1632 by CASSIA HERNÁNDEZ RT Amended: Links added.
--- NOTE | 2020-02-24 14:59 | NUR ---
PT ON 15L NRB O2 SAT 80-84%. YUNG AND LILLI AWARE. HIGH FLOW O2 ORDERED BY YUNG. PT O2 SAT NOW 90-91% WITH BOTH 15L NRB AND 60L/95% FIO2 HIGH FLOW O2.
[2020-02-24 16:00] VITALS: BP 94/58
--- NOTE | 2020-02-24 19:00 | NUR ---
PT REMAINS IN BED, NONVERBAL. PT ON HIGH FLOW O2 60L AND NONREBREATHER 15L, SHORTNESS OF BREATH. RT NOTIFIED, O2 SAT LOW 90s. ENDORSED TO ONCOMING RN. PT HAS JEVITY AT 65 ML/HR IN GT. PT HAS RH 22 RUNNING D5W AT 125 ML/HR. PER MD REEDER, NO NEED FOR MIDLINE INSERTION YET, CONTINUE TO MONITOR H/H. BED IN LOCKED LOWETS POSITION, CALL LIGHT WITHIN REACH, ALL SAFETY MEASURES IN PLACE. REPORT GIVEN TO SHAHRAM FRANCIS
[2020-02-24 20:00] VITALS: BP 107/41
[2020-02-24] MEDS ORDERED: MEROPENEM 500 MG in IV NS 0.9% 50 ML IV SCH (20:00)
--- NOTE | 2020-02-24 20:02 | NUR ---
informed Noris about patient condition 80-84% o2 saturation level in HF and NRM and she replied with stat ABGS and CXR.
--- NOTE | 2020-02-24 20:10 | NUR ---
CALLED THE FAMILY TO VERIFY CODE STATUS FOR THE PATIENT DAUGHTER STATED WANT PATIENT FULL CODE, NOTED, AND CARRIED OUT.
[2020-02-24 20:29] LABS: ABG OXYGEN SATURATION 97.5 % (92.0-98.5); ABG PCO2 22.6 mmHg (35.0-45.0); ABG PH 7.427 (7.350-7.450); ABG PO2 105.3 mmHg (75.0-100.0); AaDO2 585.1 mmHg; COHb 1.6 % (0.5-1.5); MetHb 0.3 % (0.0-1.5); O2Hb 95.6 % (94.0-97.0); SITE, ABG Right Radial; VENT MODE, BG HFNC 60L 100%
--- NOTE | 2020-02-24 20:46 | NUR ---
reported abgs results to musa steel construction worker and she replied with no intubation for now and keep patient MARIA D status and continue to monitor closely, patient right now with 02 90-92% still breathing rapid..
--- NOTE | 2020-02-24 22:18 | NUR ---
patient seen by Noris Merida at this time, no new orders.
[2020-02-25] VITALS (73 sets, daily range): BP systolic 76–139; BP diastolic 41–89
[2020-02-25] MEDS: JEVITY 1.2 CAL 1,000 ML BOTTLE GT PRN ×2 (00:44→14:23)
[2020-02-25] MEDS: METOPROLOL TARTRATE 25 MG TABLET GT SCH ×4 (00:47→18:00)
[2020-02-25] MEDS: IV D5W 1,000 ML IV PRN ×2 (02:48→09:44)
--- NOTE | 2020-02-25 04:12 | NUR ---
INFORMED LINSEY Castañeda TRANSITIONAL STUDIES INSTRUCTOR ABOUT PATIENT CONDITION NOT IMPROVING WITH O2 SAT 82% AT THIS TIME, AND RR IN LOW 50S, AND SHE REPLIED WITH NEW ORDER FOR ANOTHER ABGS, NOTED AND CARRIED OUT.
[2020-02-25 04:38] LABS: ABG BASE EXCESS -5.7 mmol/L; ABG OXYGEN SATURATION 82.1 % (92.0-98.5); ABG PCO2 24.2 mmHg (35.0-45.0); ABG PH 7.463 (7.350-7.450); ABG PO2 44.7 mmHg (75.0-100.0); AaDO2 644.1 mmHg; COHb 0.1 % (0.5-1.5); MetHb 0.1 % (0.0-1.5); O2Hb 81.9 % (94.0-97.0); SITE, ABG Right Radial; VENT MODE, BG HFNC 60L 100%
--- NOTE | 2020-02-25 04:47 | NUR ---
RELAYED PATIENTS ABGS RESULTS TO LINSEY, AND SHE REPLIED WITH ORDER TO HAVE EVERYTHING READY T INTUBATE PATIENT, MG CHARGE NURSE ICU, AND ELECTRICAL CONTACTS ADJUSTER AWARE.
--- NOTE | 2020-02-25 05:00 | NUR ---
PATIENT INTUBATED AT 0500.
[2020-02-25] MEDS ORDERED: NOREPINEPHRINE 4 MG/4 ML AMPUL IV ONE (05:07)
[2020-02-25] MEDS: PROPOFOL 100 ML IV PRN ×3 (05:25→20:03)
[2020-02-25] MEDS: NOREPINEPHRINE 8 MG in IV NS 0.9% 242 ML IV PRN ×2 (05:28→16:34)
--- NOTE | 2020-02-25 05:30 | NUR ---
0500 PATIENT INTUBATED BY ER DOCTOR ELLI, RTS, ICU CHARGE NURSE MG RN, BENITA RN, SHAHRAM RN IN ROOM, FOLLOW BY KARENA VILLAFUERTE. 0505 BP 77/37, 100, 50RR, 02 75% 0520 LEVO STARTED AT THIS TIME, VS 82/41 105, RR40, 76%. 0530 AFTER LEVO STARTED VS 110/58, 108, 78%, RR 33.0
--- NOTE | 2020-02-25 05:45 | NUR ---
0545 orally intubated ett secured at lip connected to vent with prescribed settings. o2 saturation in the low 80s. on levophed at .1mcg for bp support and propofol at 5mcg for sedation. elder trimble made aware. awaiting call back.
--- NOTE | 2020-02-25 05:50 | NUR ---
0550 BRAYDEN Oliva responded with order to titrate propofol up for max sedation. order noted and carried out.
--- NOTE | 2020-02-25 05:55 | NUR ---
RT PATIENT WAS INTUBATED AT 0500 WITH 7.5 ET TUBE AT 23CM LIP ON NOTED VENT SETTINGS BY DR ROOT . PATIENT TOLERATED CURRENT VENT SETTINGS WILL CONTINUE TO MONITOR PATIENT
--- NOTE | 2020-02-25 06:00 | NUR ---
titrated propofol up per protocol for max oxygenation. patient remains tachypneic in the high 30s with o2 saturation 82% on 100% fio2. will cont. to monitor.
--- NOTE | 2020-02-25 06:13 | NUR ---
PATIENT INTUBATED WITH 7.5 ET TUBE AT 23CM LIP ON NOTED, VENT SETTINGS AC 16, TV 450, FIO2 100%, PEEP 5, BY RT, PATIENT NOT TOLERATED WELL, O2 AT THIS TIME 82%, LINSEY AWARE, WILL CONTINUE TO MONITOR PATIENT CLOSELY., AD ENDORSE TO ONCOMING NURSE FOR CONTINUITY OF CARE.
[2020-02-25 06:35] LABS: ABG BASE EXCESS -5.8 mmol/L; ABG OXYGEN SATURATION 79.9 % (92.0-98.5); ABG PCO2 33.6 mmHg (35.0-45.0); ABG PH 7.366 (7.350-7.450); ABG PO2 46.7 mmHg (75.0-100.0); AaDO2 632.7 mmHg; COHb 0.8 % (0.5-1.5); MetHb 0.1 % (0.0-1.5); O2Hb 79.2 % (94.0-97.0)
[2020-02-25 07:56] LABS: ALBUMIN 1.7 g/dL (3.4-5.0); BILIRUBIN,TOTAL 0.3 mg/dL (0.2-1.0); CALCIUM, SERUM 9.5 mg/dL (8.5-10.1); CREATININE 2.4 mg/dL (0.6-1.3); MAGNESIUM 2.9 mg/dL (1.8-2.4); POTASSIUM 4.1 mmol/L (3.5-5.1); TOTAL PROTEIN, SERUM 6.2 g/dL (6.4-8.2)
--- NOTE | 2020-02-25 08:00 | NUR ---
CALLED ISABELLE DAUGHTER TO RIGGER UP UPDATE OF MOM'S CONDITION UNLABLE TO REACH, LEFT MESSAGE, CALLED BROTHER PATRICIA YI AND INFORMED HIM ABOUT PATIENT'S CONDITION, HE VERBALIZED UNDERSTANDING AND WILL CALL ISABELLE AGAIN.
--- NOTE | 2020-02-25 08:00 | NUR ---
0800 report given to abbie martinez for transfer of care with questions answered.
--- NOTE | 2020-02-25 08:00 | NUR ---
NOTE TELLER NOTES RECEIVE PATIENT, OBTUNDED, WITH ETT 7.5 [0500], AC 16 TV 450 FIO2 100% PEEP 0 SATTING AT 81%. BREATHING EVEN AND UNLABORED. WITH CYDNEY MIDLINE WITH PROPOFOL AT 30 MCG/HR AND LEVOPHED AT 0.1 MCG/HR ONGOING. RT G 20 ON RT FOOT FLUSHES WELL. SITE CLEAR. JEVITY OFF AT 0800 ON AT 1200 AT 65 ML/HR. 10 ML RESIDUAL. PLACEMENT CHECKED. RESTRAINT RELEASED AND CHECKED FOR CIRCULATION THEN Q 2 HOURS. WILL TURN AND REPOSITION Q 2HOURS. BED LOW LOCKED, SAFETY MEASURES IN PLACE. ISOLATION FOR COVID OBSERVED. WILL CONT TO MONITOR.
--- NOTE | 2020-02-25 08:49 | NUR ---
vent changes below per DR Magdalene ENGL[place] 10 RN will ne notified. Addendum: 02/25/20 at 0858 by RACHEL PARSONS RT Amended: Links added.
[2020-02-25] MEDS: MULTIVITAMINS,THERAGRAN 1 UDTAB TABLET GT SCH (09:00)
[2020-02-25] MEDS: FAMOTIDINE (20 MG) 20 MG TABLET GT SCH (09:00)
[2020-02-25] MEDS: POLYETHYLENE GLYCOL 3350 17 GM POWD.PACK GT SCH (09:00)
[2020-02-25] MEDS: DOCUSATE SODIUM LIQ 100 MG/10 ML UDC GT SCH ×2 (09:00→16:34)
[2020-02-25] MEDS: ASCORBIC ACID 500 MG TABLET GT SCH (09:00)
[2020-02-25] MEDS: FERROUS SULFATE UDC 300 MG/5 ML UDC GT SCH (09:00)
[2020-02-25 09:23] LABS: BASOPHILS % (AUTO) 0.2 % (0.0-2.0); HEMATOCRIT 24 % (33-45); HEMOGLOBIN 7.6 g/dL (11.5-14.8); LYMPHOCYTES # (AUTO) 0.8 /CMM (0.8-4.8); LYMPHOCYTES % (AUTO) 7.4 % (20.0-44.0); MEAN CORPUSCULAR HGB CONC 32 g/dl (31.0-36.0); MEAN CORPUSCULAR VOLUME 105 fL (82-100); MONOCYTES # (AUTO) 0.1 /CMM (0.1-1.30); MONOCYTES % (AUTO) 1.1 % (2.0-12.0); NEUTROPHILS % (AUTO) 91.3 % (43.0-81.0); PLATELET COUNT (AUTO) 82 /CMM (150-450)
[2020-02-25] MEDS: MEROPENEM 500 MG in IV NS 0.9% 100 ML IV SCH ×2 (09:23→20:05)
[2020-02-25] MEDS: DEXAMETHASONE SOD PHOSPHATE 10 MG/ML VIAL IV SCH (09:28)
[2020-02-25 11:31] LABS: BAND % (MANUAL) 8 % (0.0-5.0); LYMPHOCYTES % (MANUAL) 14 % (16-48); METAMYELOCYTES % 1 % (0-0); MYELOCYTES % 1 % (0-0); NEUTROPHILS % (MANUAL) 76 (42-76)
--- NOTE | 2020-02-25 13:00 | NUR ---
RN NOTES REPORT GIVEN TO BARBARA FOR PENNY
--- NOTE | 2020-02-25 17:00 | NUR ---
PER LEILANI. OK TO GIVE PRBCS DURING NEXT HD SESSION.
[2020-02-25 17:26] LABS: ABG BASE EXCESS -9.2 mmol/L; ABG PH 7.217 (7.350-7.450); ABG PO2 93.2 mmHg (75.0-100.0); AaDO2 574.8 mmHg; MetHb 0.3 % (0.0-1.5); O2Hb 94.8 % (94.0-97.0); SITE, ABG Right Radial; VENT MODE, BG AC 16 450 +10 100%
--- NOTE | 2020-02-25 18:04 | NUR ---
ORDERED METOPROLOL HELD PT SBP RANGES FROM 98-107. MONITORING Q15 MINS PT IS ON THE ORDERED LEVOPHED.
--- NOTE | 2020-02-25 19:00 | NUR ---
PATIENT, OBTUNDED, WITH ETT 7.5 [0500], AC 16 TV 450 FIO2 100% PEEP 10 SAO2 AT 98%. BREATHING EVEN AND UNLABORED. WITH CYDNEY MIDLINE WITH PROPOFOL AT 30 MCG/HR AND LEVOPHED AT 0.15 MCG/HR ONGOING. RT G 20 ON RT FOOT FLUSHES WELL. SITE CLEAR. JEVITY OFF AT 0800 ON AT 1200 AT 65 ML/HR. 10 ML W NO RESIDUAL. PLACEMENT CHECKED VIA AUSCULTATION. RESTRAINT RELEASED AND CHECKED FOR CIRCULATION THEN Q 2 HOURS. TURNED AND REPOSITION Q 2HOURS. BED LOW LOCKED, SAFETY MEASURES IN PLACE, HOB ELEVATED 30 DEGREES, RAILS UP X2, BED ALARM ON AND BED LOCKED LOW. ISOLATION FOR COVID OBSERVED. ENDORSED TO PM RN.
--- NOTE | 2020-02-25 20:00 | NUR ---
ICUOV RN NOTE RECEVIED PT IN BED SEDATED. JANNETTE INTACT AND PATENT 7.5/ AT LIPS TOLERATING WENT SETTINGS. NO DISTRESS OR DISCOMFORT NOTED. NO S/S OF PAIN NOTED. HUNGED MERREM IV ATB ORDERED INFUSING AT RT FOOT, NO SS OF INFILTRATION NOTED. CYDNEY MID LINE GETTING INFUSED PROPOFOL AT 30 MCG/KG/MIN E 11.594 ML/HR AND LEVOPHED INFUSING AT 0.1 MCG/KG/MIN. B/P IS IN CONTROL AT 98/51 HR 79 O2 Sat 98%. PT WITH BILATERAL SOFT WRIST RESTRAINTS. REPOSITION FOR COMFORT AND SKIN MANAGEMENT. SIDE RAILS UP X 3 AND CALL LIGHT WITHIN REACH. CONTINUE TO MONITOR HER.
[2020-02-26] VITALS (58 sets, daily range): BP systolic 82–126; BP diastolic 49–74
[2020-02-26] MEDS: METOPROLOL TARTRATE 25 MG TABLET GT SCH ×4 (00:55→17:08)
[2020-02-26] MEDS: PROPOFOL 100 ML IV PRN ×4 (03:57→16:52)
[2020-02-26] MEDS: JEVITY 1.2 CAL 1,000 ML BOTTLE GT PRN (03:57)
[2020-02-26] MEDS: IV D5W 1,000 ML IV PRN ×2 (04:18→17:40)
[2020-02-26] MEDS: NOREPINEPHRINE 8 MG in IV NS 0.9% 242 ML IV PRN ×2 (04:18→10:46)
--- NOTE | 2020-02-26 06:29 | NUR ---
ICU OV RN NOTE PT IN BED SEDATED. NO DISTRESS NOTED. NO S/S OF PAIN NOTED. ON TELE MONITOR SR 75. LEVO AND PROPOFOL INFUSING WELL, NO S/S OF INFILTRATION NOTED. D5W INFUSING AT 75 ML/HR, NO S/S OF INFILTRATION NOTED. GT FEEDING ALSO INFUSING WELL, 0 ML RESIDUAL NOTED. F/C INTACT AND PATENT. REPOSITION HER Q2H, KEPT HER DRY AND CLEAN. ALL NEEDS ATTENDED. WILL ENDORSE TO DAY SHIFT NURSE FOR CONTINUE TO CARE.
--- NOTE | 2020-02-26 08:00 | NUR ---
ICU OVERFLOW RN NOTES Received patient in the bed, sedated with ETT TO VENT SETTING.Patient sedated on propofol as per hospital protocol and Levophed drip as ordered and IV D5 fluids at 75 ml/hour. RT at bedside , ABG done and will report to Dr Del Castillo. On a Gtube feeding with residual noted to be 60 ml. HOB kept elevated at all times to prevent aspiration. On tele monitor with SR 73bpm. With Mabry cath hanging to gravity with clear yellow urine with small amount of urine noted. Upper and lower extremity edema , kept elevated and will monitor.
[2020-02-26 08:52] LABS: ABG BASE EXCESS -10.8 mmol/L; ABG OXYGEN SATURATION 96.2 % (92.0-98.5); ABG PCO2 43.1 mmHg (35.0-45.0); ABG PH 7.197 (7.350-7.450); ABG PO2 88.6 mmHg (75.0-100.0); AaDO2 581.3 mmHg; COHb 2.3 % (0.5-1.5); MetHb 0.5 % (0.0-1.5); O2Hb 93.5 % (94.0-97.0); SITE, ABG Right Radial; VENT MODE, BG AC 28 450 100% +10
[2020-02-26] MEDS: FERROUS SULFATE UDC 300 MG/5 ML UDC GT SCH (09:13)
[2020-02-26] MEDS: DOCUSATE SODIUM LIQ 100 MG/10 ML UDC GT SCH ×2 (09:13→16:19)
[2020-02-26] MEDS: FAMOTIDINE (20 MG) 20 MG TABLET GT SCH (09:14)
[2020-02-26] MEDS: MULTIVITAMINS,THERAGRAN 1 UDTAB TABLET GT SCH (09:14)
[2020-02-26] MEDS: ASCORBIC ACID 500 MG TABLET GT SCH (09:14)
[2020-02-26] MEDS: POLYETHYLENE GLYCOL 3350 17 GM POWD.PACK GT SCH (09:14)
[2020-02-26] MEDS: DEXAMETHASONE SOD PHOSPHATE 10 MG/ML VIAL IV SCH (09:14)
[2020-02-26] MEDS: MEROPENEM 500 MG in IV NS 0.9% 100 ML IV SCH ×2 (09:19→20:14)
--- NOTE | 2020-02-26 09:30 | NUR ---
rounds made patent still on vent with labored breathing dr lopez at bedside aware with tv of vent change to 500 , rt at bedside
--- NOTE | 2020-02-26 11:48 | NUR ---
icu overflow rn note metoprolol hold at this time patient, on Levophed drip at this time Addendum: 02/26/20 at 1243 by MARGIE HEREDIA RN mouth care done ,ett tube suction done ,keep clean dry
[2020-02-26 14:00] LABS: BILIRUBIN,TOTAL 0.2 mg/dL (0.2-1.0); CALCIUM, SERUM 8.5 mg/dL (8.5-10.1); CREATININE 3.4 mg/dL (0.6-1.3); POTASSIUM 4.8 mmol/L (3.5-5.1); TOTAL PROTEIN, SERUM 5.8 g/dL (6.4-8.2)
[2020-02-26 14:17] LABS: MAGNESIUM 3.4 mg/dL (1.8-2.4)
[2020-02-26 14:26] LABS: ALBUMIN 1.4 g/dL (3.4-5.0); PHOSPHORUS 10.7 mg/dL (2.5-4.9)
[2020-02-26] MEDS: CITRIC ACID/SODIUM CITRATE (BICITRA)15 ML UDC PO SCH ×2 (16:19→20:14)
--- NOTE | 2020-02-26 17:09 | NUR ---
ICU OVERFLOW RN NOTES Called OPTOMETRIC AIDE Hector regarding giving Metoprolol Q6H along with Levophed drip. Received order to hold Metoprolol for now.
--- NOTE | 2020-02-26 18:01 | NUR ---
ICU OVERFLOW RN NOTES Called lab for follow up regarding CBC blood draw results. Spoke to Alicia and per staff, lab draw was done twice and both times it coagulated. Lab draw will be done again.
--- NOTE | 2020-02-26 18:09 | NUR ---
ICU OVERFLOW RN NOTES Informed Dr Stallworth regarding patient's urine output of 100 cc during shift. No new orders given at this time.
--- NOTE | 2020-02-26 18:46 | NUR ---
ICU OVERFLOW RN NOTES Transfered patient to ICU. Report given to RN Morgan. Patient was transferred with ACLS protocol, RT at bedside. Patient was in stable condition on ETT tube with 02 saturation of 96%.
--- NOTE | 2020-02-26 19:15 | NUR ---
RECEIVED PT ON BED SEDATED ON ETT 7.5/ VENT SETTING PER MD SPO2 98%, TELE MONITOR READS SINUS RHYTHM 70'S HAVE CYDNEY MIDLINE PATENT AND FLUSHED WITH ONGOING PROPOFOL @30MCG/KG/MIN, LEVOPHED @ 0.1 MCG/KG/MIN AND D5W @ 75ML/HR INFUSING WELL,GTUBE ON PLACED PATENT RESIDUAL 30ML/HR, JEVITY RUNNING @ 65ML/HR, HAVE VENTURA CATHETER DRAINING YELLOW URINE VIA GRAVITY, DROPLET ISOLATION FOR COVID 19 MAINTAINED BED ON LWOEST POSITION AN DLOCKED HOB @ 30 DEGREE, SIDE RAILS UP X2 WILL CONT TO MONITOR THE PT
[2020-02-26 21:05] LABS: BASOPHILS % (AUTO) 0.1 % (0.0-2.0); LYMPHOCYTES # (AUTO) 0.2 /CMM (0.8-4.8); LYMPHOCYTES % (AUTO) 3.8 % (20.0-44.0); MEAN CORPUSCULAR HGB CONC 32 g/dl (31.0-36.0); MEAN CORPUSCULAR VOLUME 103 fL (82-100); MONOCYTES # (AUTO) 0.1 /CMM (0.1-1.30); NEUTROPHILS # (AUTO) 5.7 /CMM (1.8-8.9); NEUTROPHILS % (AUTO) 95.1 % (43.0-81.0); PLATELET COUNT (AUTO) 53 /CMM (150-450)
[2020-02-26 21:51] LABS: RED BLOOD CELL COUNT(AUTO) 1.76 MIL/uL (4.0-5.2)
[2020-02-26 21:57] LABS: HEMOGLOBIN 5.8 g/dL (11.5-14.8)
[2020-02-26 21:58] LABS: HEMATOCRIT 18 % (33-45)
--- NOTE | 2020-02-26 22:36 | NUR ---
REPORTED TO DR. REY MELO ABOUT THE HGB OF 5.8 AND HCT 18 OF THE PT AND ASK IF IF HE WANT TO TRANSFUSE PRBC AND HE SAID NO, CHARGE NURSE MADE AWARE NOTED AND CARRIED OUT
[2020-02-26 22:41] LABS: LYMPHOCYTES % (MANUAL) 4 % (16-48); MONOCYTES % (MANUAL) 4 % (0-11.0); NEUTROPHILS % (MANUAL) 92 (42-76)
[2020-02-27] VITALS (93 sets, daily range): BP systolic 88–147; BP diastolic 22–81
--- NOTE | 2020-02-27 00:05 | NUR ---
LOPRESSOR NOT GIVEN BECAUSE PT IS CURRENTLY ON LEVOPHED @ 0.1MCG/KG/MIN WITH CURRENT BP OF 130/72 TO BE TITRATE DOWN WILL CONT TO MONITOR, PT SPO2 IS 98%
[2020-02-27] MEDS: PROPOFOL 100 ML IV PRN ×4 (01:35→18:18)
[2020-02-27] MEDS: NOREPINEPHRINE 8 MG in IV NS 0.9% 242 ML IV PRN ×2 (01:48→11:47)
[2020-02-27 04:24] LABS: BASOPHILS % (AUTO) 0.1 % (0.0-2.0); EOSINOPHILS % (AUTO) 0.1 % (0.0-6.0); LYMPHOCYTES # (AUTO) 0.3 /CMM (0.8-4.8); LYMPHOCYTES % (AUTO) 4.5 % (20.0-44.0); MEAN CORPUSCULAR HGB CONC 32 g/dl (31.0-36.0); MEAN CORPUSCULAR VOLUME 104 fL (82-100); MONOCYTES # (AUTO) 0.1 /CMM (0.1-1.30); NEUTROPHILS % (AUTO) 94.3 % (43.0-81.0); PLATELET COUNT (AUTO) 58 /CMM (150-450); WHITE BLOOD COUNT (AUTO) 7.4 K/uL (4.3-11.0)
[2020-02-27 04:41] LABS: HEMATOCRIT 12 % (33-45)
[2020-02-27 04:47] LABS: CREATININE 3.6 mg/dL (0.6-1.3); MAGNESIUM 3.2 mg/dL (1.8-2.4); POTASSIUM 5.5 mmol/L (3.5-5.1)
--- NOTE | 2020-02-27 05:00 | NUR ---
REPORTED TO DR. REY KRISHNAMURTHYAPAGIULIANO ABOUT THE HGB OF 4 HCT 12 AND PLT 58 OF THE PT, / REY ORDER A REPEAT CBC STAT NOTED AND CARRIED OUT
[2020-02-27 05:12] LABS: LYMPHOCYTES % (MANUAL) 4 % (16-48); MONOCYTES % (MANUAL) 3 % (0-11.0); NEUTROPHILS % (MANUAL) 93 (42-76)
[2020-02-27 05:17] LABS: PHOSPHORUS 10.4 mg/dL (2.5-4.9)
[2020-02-27] MEDS: METOPROLOL TARTRATE 25 MG TABLET GT SCH ×4 (06:00→17:20)
[2020-02-27] MEDS: JEVITY 1.2 CAL 1,000 ML BOTTLE GT PRN (06:08)
[2020-02-27] MEDS: IV D5W 1,000 ML IV PRN (06:30)
[2020-02-27 06:34] LABS: BASOPHILS % (AUTO) 0.1 % (0.0-2.0); EOSINOPHILS % (AUTO) 0.1 % (0.0-6.0); LYMPHOCYTES # (AUTO) 0.2 /CMM (0.8-4.8); LYMPHOCYTES % (AUTO) 4.2 % (20.0-44.0); MEAN CORPUSCULAR HGB CONC 33 g/dl (31.0-36.0); MEAN CORPUSCULAR VOLUME 103 fL (82-100); MONOCYTES # (AUTO) 0.1 /CMM (0.1-1.30); MONOCYTES % (AUTO) 1.1 % (2.0-12.0); NEUTROPHILS # (AUTO) 5.4 /CMM (1.8-8.9); NEUTROPHILS % (AUTO) 94.5 % (43.0-81.0); WHITE BLOOD COUNT (AUTO) 5.7 K/uL (4.3-11.0)
[2020-02-27 06:38] LABS: RED BLOOD CELL COUNT(AUTO) 1.61 MIL/uL (4.0-5.2)
[2020-02-27 06:43] LABS: HEMATOCRIT 17 % (33-45); HEMOGLOBIN 5.4 g/dL (11.5-14.8); PLATELET COUNT (AUTO) 49 /CMM (150-450)
--- NOTE | 2020-02-27 06:50 | NUR ---
RELAYED TO DR. LE THE REPEAT CBC WITH HGB OF 5.4 AND HCT 17 PLT 19 WITH ORDER TO TRANSFUSED 1PRBC, ABO TYPING ORDER, CONSENT WAS GET FROM THE DAUGHTER ISABELLE VIA PHONE, WILL CONT TO MONITOR
[2020-02-27] MEDS: MEROPENEM 500 MG in IV NS 0.9% 100 ML IV SCH ×2 (08:39→20:22)
[2020-02-27] MEDS: FERROUS SULFATE UDC 300 MG/5 ML UDC GT SCH (08:40)
[2020-02-27] MEDS: MULTIVITAMINS,THERAGRAN 1 UDTAB TABLET GT SCH (08:40)
[2020-02-27] MEDS: DOCUSATE SODIUM LIQ 100 MG/10 ML UDC GT SCH ×2 (08:40→17:19)
[2020-02-27] MEDS: DEXAMETHASONE SOD PHOSPHATE 10 MG/ML VIAL IV SCH (08:40)
[2020-02-27] MEDS: ASCORBIC ACID 500 MG TABLET GT SCH (08:40)
[2020-02-27] MEDS: FAMOTIDINE (20 MG) 20 MG TABLET GT SCH (08:40)
[2020-02-27] MEDS: CITRIC ACID/SODIUM CITRATE (BICITRA)15 ML UDC PO SCH ×4 (08:40→20:22)
[2020-02-27] MEDS: POLYETHYLENE GLYCOL 3350 17 GM POWD.PACK GT SCH (08:41)
[2020-02-27 08:44] LABS: ABG BASE EXCESS -9.3 mmol/L; ABG OXYGEN SATURATION 99.2 % (92.0-98.5); ABG PH 7.258 (7.350-7.450); ABG PO2 170.1 mmHg (75.0-100.0); AaDO2 503.9 mmHg; COHb 0.7 % (0.5-1.5); MetHb 0.3 % (0.0-1.5); O2Hb 98.2 % (94.0-97.0); PEEP,BG 10 cm H2O; SITE, ABG Right Radial; VT, ABG 500 mL
[2020-02-27 17:10] LABS: *SPE A/G RATIO 0.8 (0.7-1.7); *SPE ALBUMIN 2.4 g/dL (2.9-4.4); *SPE ALPHA-1-GLOBULIN 0.3 g/dL (0.0-0.4); *SPE ALPHA-2-GLOBULIN 1.1 g/dL (0.4-1.0); *SPE BETA GLOBULIN 0.9 g/dL (0.7-1.3); *SPE GLOBULIN, TOTAL 2.9 g/dL (2.2-3.9); *SPE M-SPIKE Not Observed g/dL (Not Observed); *SPEGAMMA GLOBULIN 0.7 g/dL (0.4-1.8)
--- NOTE | 2020-02-27 18:41 | NUR ---
PT REMAINS SEDATED. ALL DUE MEDS GIVEN ORDERED. NOT IN ANY ACUTE DISTRESS AT THIS TIME. ABLE TO TOLERATE VENT SETTINGS. BLOOD TRANSFUSION DONE DURING THE SHIFT WITH NO ADVERSE SIDE EFFECTS. WILL ENDORSE TO NEXT SHIFT.
--- NOTE | 2020-02-27 19:30 | NUR ---
RN NOTE RECEIVED PATIENT IN BED, SEDATED. PATIENT IN NO S/SX OF ACUTE DISTRESS AT THIS TIME. PATIENT'S BREATHING IS EVEN AND UNLABORED. PATIENT ON ET TUBE CONECTED TO MECHANICAL VENTILATOR WITH SETTINGS PRESCRIBED, FIO2 CURRENTLY AT 70% PEEP 7. PATIENT ON BEDSIDE MONITOR READING SR, HR IS 79. NOTED IV SITE AT R HAND 22G, R FOOT 20G, AND CYDNEY MIDLINE, ALL PATENT AND FLUSHING WELL, DIPRIVAN DRIP INFUSING AT 50 MCG/KG/HR, NOREPINEPHRINE INFUSING AT DOSERATE OF 0.8 MCG/KG/MIN, IV FLUID OF D5W WAS STOPPED WHEN PATIENT WAS RECEIVED. NOTED GTUBE INTACT, PLACEMENT WAS CHECKED, MINIMAL RESIDUAL NOTED, WITH JEVITY 1.2 TARAH REGULATED AT 65 ML/HR. VENTURA CATHETER CONNECTED TO URINE BAG IN PLACE, DRAINING TO A CLEAR YELLOW URINE, 100 ML OF OUTPUT WAS NOTED. SAFETY MEASURES IMPLEMENTED PER PROTOCOL. PATIENT BED ALARM IS ON. HEAD OF BED ELEVATED. BED IS LOCKED, IN LOWEST POSITION AND SIDE RAILS UP. CALL LIGHT WITHIN REACH OF THE PATIENT. WILL CONTINUE TO MONITOR AND REASSESS FOR ANY CHANGES.
--- NOTE | 2020-02-27 22:25 | NUR ---
RN NOTE PER FREDDIE RT, FIO2 INCREASED TO 80%. PATIENT TOLERATING WELL SATURATING AT 97%. WILL CONTINUE TO MONITOR OXYGENATION STATUS.
[2020-02-28] VITALS (72 sets, daily range): BP systolic 90–131; BP diastolic 50–73
[2020-02-28] MEDS: NOREPINEPHRINE 8 MG in IV NS 0.9% 242 ML IV PRN (02:08)
[2020-02-28] MEDS: PROPOFOL 100 ML IV PRN ×5 (03:47→18:59)
[2020-02-28 05:05] LABS: CALCIUM, SERUM 7.7 mg/dL (8.5-10.1); CREATININE 4.1 mg/dL (0.6-1.3); MAGNESIUM 3.2 mg/dL (1.8-2.4); POTASSIUM 5.9 mmol/L (3.5-5.1)
[2020-02-28 05:41] LABS: PHOSPHORUS 11.8 mg/dL (2.5-4.9)
[2020-02-28 05:42] LABS: BASOPHILS % (AUTO) 0.3 % (0.0-2.0); EOSINOPHILS % (AUTO) 0.8 % (0.0-6.0); LYMPHOCYTES # (AUTO) 0.4 /CMM (0.8-4.8); LYMPHOCYTES % (AUTO) 2.6 % (20.0-44.0); MEAN CORPUSCULAR HGB CONC 34 g/dl (31.0-36.0); MEAN CORPUSCULAR VOLUME 100 fL (82-100); MONOCYTES # (AUTO) 0.3 /CMM (0.1-1.30); NEUTROPHILS % (AUTO) 94.3 % (43.0-81.0); PLATELET COUNT (AUTO) 71 /CMM (150-450); WHITE BLOOD COUNT (AUTO) 14.9 K/uL (4.3-11.0)
[2020-02-28 05:59] LABS: RED BLOOD CELL COUNT(AUTO) 1.78 MIL/uL (4.0-5.2)
[2020-02-28 06:00] LABS: HEMATOCRIT 18 % (33-45)
[2020-02-28] MEDS: METOPROLOL TARTRATE 25 MG TABLET GT SCH ×4 (06:00→17:53)
[2020-02-28 06:10] LABS: LYMPHOCYTES % (MANUAL) 3 % (16-48); MONOCYTES % (MANUAL) 3 % (0-11.0); NEUTROPHILS % (MANUAL) 94 (42-76)
--- NOTE | 2020-02-28 07:30 | NUR ---
RN OPENING NOTES PATIENT IN BED, SEDATED, ON [facility] VENTILATOR, TOLERATING SETTINGS AND SEDATION WELL, PROVIDED SUCTION AND MOUTH HYGIENE, NOTED ASPIRATION PRECAUTIONS, HOB IS ELEVATED, G-TUBE NOTED, INTACT, PATENT, RUNNING JEVITY 1.0 @65 ML/HR, NO RESIDUAL NOTED, VENTURA CATH IN PLACE, DRAINING YELLOW URINE BY GRAVITY,IV LINES PATENT, INTACT, RUNNING DIPRIVAN @50MCG/KG, NOREPINEPHRINE @ 0.08 MCG/HR AND D5W @75CC/HR, SAFETY MEASURES IN PLACE, BED IS LOCKED IN LOWEST POSITION, WILL CONT TO MONITOR
--- NOTE | 2020-02-28 07:30 | NUR ---
RN NOTE CRITICAL LAB VALUES RECEIVED FROM LESIA OF LAB AT 0600 FOLLOWS: BUN 134, PHOSPHORUS 11.8, HGB 6.0, HCT 18. PLATELET 71. CHICKEN HATCHERY HELPER MD WAS NOTIFIED VIA PHONE CALL AT [phone], [phone], [phone] BUT NO CALL BACK WAS RECEIVED. MARKETING AND PUBLIC RELATIONS MANAGER WAS MADE AWARE. ENDORSED TO BOBBY STOCKTON.
[2020-02-28] MEDS: MEROPENEM 500 MG in IV NS 0.9% 100 ML IV SCH ×2 (07:58→20:16)
[2020-02-28 08:28] LABS: ABG BASE EXCESS -8.9 mmol/L; ABG OXYGEN SATURATION 86.7 % (92.0-98.5); ABG PCO2 41.6 mmHg (35.0-45.0); ABG PH 7.246 (7.350-7.450); ABG PO2 59.9 mmHg (75.0-100.0); AaDO2 466.8 mmHg; COHb 0.5 % (0.5-1.5); MetHb 0.4 % (0.0-1.5); O2Hb 85.9 % (94.0-97.0); SITE, ABG Right Radial; VENT MODE, BG AC 28 500 +8 80%
--- NOTE | 2020-02-28 08:30 | NUR ---
no sedation vacation today per Dr Del Castillo
[2020-02-28] MEDS: POLYETHYLENE GLYCOL 3350 17 GM POWD.PACK GT SCH (09:17)
[2020-02-28] MEDS: DOCUSATE SODIUM LIQ 100 MG/10 ML UDC GT SCH ×2 (09:17→17:53)
[2020-02-28] MEDS: FERROUS SULFATE UDC 300 MG/5 ML UDC GT SCH (09:17)
[2020-02-28] MEDS: DEXAMETHASONE SOD PHOSPHATE 10 MG/ML VIAL IV SCH (09:17)
[2020-02-28] MEDS: ASCORBIC ACID 500 MG TABLET GT SCH (09:17)
[2020-02-28] MEDS: MULTIVITAMINS,THERAGRAN 1 UDTAB TABLET GT SCH (09:17)
[2020-02-28] MEDS: FAMOTIDINE (20 MG) 20 MG TABLET GT SCH (09:17)
[2020-02-28] MEDS: CITRIC ACID/SODIUM CITRATE (BICITRA)15 ML UDC PO SCH ×4 (09:17→21:57)
[2020-02-28] MEDS ORDERED: NEPRO 1,000 ML BOTTLE GT PRN (13:30)
--- NOTE | 2020-02-28 15:45 | NUR ---
Dr Yo present at bed site, trying to obtain consent form for HD placement from daughter, called x7, left message, no response
--- NOTE | 2020-02-28 16:00 | NUR ---
HD CATH PLACE R FEM
[2020-02-28] MEDS: PROSOURCE / PROSTAT (PYXIS) 30 ML UDC GT SCH (16:09)
--- NOTE | 2020-02-28 17:34 | NUR ---
initiated blood transfusion, tolerating well, vital signs WNL
[2020-02-28] MEDS: JEVITY 1.2 CAL 1,000 ML BOTTLE GT PRN (17:49)
--- NOTE | 2020-02-28 18:00 | NUR ---
Tolerating blood transfusion well, cont to monitor
--- NOTE | 2020-02-28 19:30 | NUR ---
RN CLOSING NOTES Patient remains in bed, tolerating settings and blood transfusion well,medications given, comfort needs provided , will endorse to PM shift RN for PENNY
--- NOTE | 2020-02-28 19:30 | NUR ---
CERTIFIED PROSTHETIST VICE PRESIDENT NOTES PATIENT IN BED, SEDATED, ON [facility] VENTILATOR, TOLERATING SETTINGS ETT SIZE 7.5/23 AT LIP AC 28 TV 500 FIO2 80% WELL TOLERATED , PROVIDED SUCTION AND MOUTH HYGIENE, NOTED ASPIRATION PRECAUTIONS, HOB IS ELEVATED, G-TUBE NOTED, INTACT, PATENT, RUNNING NEPHRO AT 20CC/HR NO RESIDUAL NOTED, VENTURA CATH IN PLACE, DRAINING YELLOW URINE BY GRAVITY,IV LINES PATENT, INTACT, RUNNING DIPRIVAN @50MCG/KG, NOREPINEPHRINE @ 0.08 MCG/HR ,IST UNIT OF PRBC ON PROGRESS NO ASE NOTED. SAFETY MEASURES IN PLACE, BED IS LOCKED IN LOWEST POSITION, WILL CONT TO MONITOR V/S STABLE AFEBRILE , ON HD CATH ON RIGHT FEMORAL .ALL DUE MEDS GIVEN ORDERED, ALL NEEDS ATTENDED TOO ,AWAITING FOR HD NURSE TO DO HD TREATMENT .WILL CONTINUE TO MONITOR PTS.
--- NOTE | 2020-02-28 20:00 | NUR ---
travel registered nurse icu notes Due meds given as ordered no ase noted all needs attended too .
--- NOTE | 2020-02-28 21:00 | NUR ---
forester silviculture notes 1st unit of prbc completed with no ase noted, will continue to monitor pts.
--- NOTE | 2020-02-28 21:05 | NUR ---
inside horticultural specialty grower notes hd dialysis nurse at bedside , hd treatment started at 2104. will continue to monitor pts.
--- NOTE | 2020-02-28 21:47 | NUR ---
director of agriculture notes 2nd unit of prbc started at 2147 checked by 2 rns , v/s stable afebrile , no ase noted ,will continue to monitor pts.
[2020-02-29] VITALS (41 sets, daily range): BP systolic 80–140; BP diastolic 47–74
--- NOTE | 2020-02-29 | NUR ---
agricultural equipment salesperson notes hd treatment completed per hd nurse 1liter out .bp 88/47 versed increase to o.1mcg /kg /min s ordered will continue to monitor pts.
--- NOTE | 2020-02-29 00:47 | NUR ---
agricultural commodities grader notes 2nd unit of prbc completed with no adverse side effect noted.
[2020-02-29] MEDS: PROPOFOL 100 ML IV PRN ×6 (01:12→21:17)
[2020-02-29] MEDS: NOREPINEPHRINE 8 MG in IV NS 0.9% 242 ML IV PRN ×2 (01:16→20:40)
--- NOTE | 2020-02-29 02:00 | NUR ---
professor of floriculture notes Rt at bedside pts sating 100% fio2 down to 70%,will continue to monitor pts.
--- NOTE | 2020-02-29 05:15 | NUR ---
BOOK COVERER NOTES PTS LEFT FOR ABDOMINAL PELVIC CT SCAN WITH RT AND CHARGE NURSE MG IN STABLE CONDITION ,VIIA ACLS MONITOR.
--- NOTE | 2020-02-29 05:45 | NUR ---
arboriculture teacher notes pts back from ct scan in stable condition will continue to monitor pts,
[2020-02-29 06:01] LABS: BASOPHILS % (AUTO) 0.2 % (0.0-2.0); EOSINOPHILS % (AUTO) 0.8 % (0.0-6.0); HEMATOCRIT 30 % (33-45); HEMOGLOBIN 10.3 g/dL (11.5-14.8); LYMPHOCYTES # (AUTO) 0.6 /CMM (0.8-4.8); LYMPHOCYTES % (AUTO) 6.2 % (20.0-44.0); MEAN CORPUSCULAR HGB CONC 35 g/dl (31.0-36.0); MEAN CORPUSCULAR VOLUME 92 fL (82-100); MONOCYTES # (AUTO) 0.1 /CMM (0.1-1.30); MONOCYTES % (AUTO) 0.8 % (2.0-12.0); NEUTROPHILS # (AUTO) 8.5 /CMM (1.8-8.9); RED BLOOD CELL COUNT(AUTO) 3.23 MIL/uL (4.0-5.2); WHITE BLOOD COUNT (AUTO) 9.3 K/uL (4.3-11.0)
[2020-02-29 06:07] LABS: PLATELET COUNT (AUTO) 46 /CMM (150-450)
[2020-02-29 06:19] LABS: CALCIUM, SERUM 7.1 mg/dL (8.5-10.1); CREATININE 3.4 mg/dL (0.6-1.3); MAGNESIUM 2.5 mg/dL (1.8-2.4)
[2020-02-29 06:30] LABS: BAND % (MANUAL) 2 % (0.0-5.0); LYMPHOCYTES % (MANUAL) 4 % (16-48); MONOCYTES % (MANUAL) 5 % (0-11.0); NEUTROPHILS % (MANUAL) 89 (42-76)
--- NOTE | 2020-02-29 07:00 | NUR ---
agricultural sciences professor notes received a call from ct scan spoke to radiologist said no bleeding noted.
[2020-02-29 07:05] LABS: PHOSPHORUS 9.1 mg/dL (2.5-4.9)
[2020-02-29] MEDS: METOPROLOL TARTRATE 25 MG TABLET GT SCH ×4 (07:39→18:00)
[2020-02-29] MEDS: MEROPENEM 500 MG in IV NS 0.9% 100 ML IV SCH ×2 (07:43→20:04)
[2020-02-29 08:08] LABS: ABG BASE EXCESS -4.4 mmol/L; ABG OXYGEN SATURATION 90.1 % (92.0-98.5); ABG PH 7.371 (7.350-7.450); ABG PO2 61.9 mmHg (75.0-100.0); AaDO2 398.5 mmHg; COHb 0.4 % (0.5-1.5); MetHb 0.3 % (0.0-1.5); O2Hb 89.5 % (94.0-97.0); SITE, ABG Right Femoral; VENT MODE, BG AC 28 500 70% +10
--- NOTE | 2020-02-29 08:31 | NUR ---
rn picu notes pts remain in bed on ventilator setting well tolerated . pts is afebrile with stable v/s will endorsed to morning shift for continuity of care.
[2020-02-29] MEDS: FERROUS SULFATE UDC 300 MG/5 ML UDC GT SCH (09:52)
[2020-02-29] MEDS: DOCUSATE SODIUM LIQ 100 MG/10 ML UDC GT SCH ×2 (09:52→16:50)
[2020-02-29] MEDS: FAMOTIDINE (20 MG) 20 MG TABLET GT SCH (09:53)
[2020-02-29] MEDS: POLYETHYLENE GLYCOL 3350 17 GM POWD.PACK GT SCH (09:53)
[2020-02-29] MEDS: PROSOURCE / PROSTAT (PYXIS) 30 ML UDC GT SCH ×2 (09:54→18:07)
[2020-02-29] MEDS: CITRIC ACID/SODIUM CITRATE (BICITRA)15 ML UDC PO SCH ×4 (09:54→21:08)
[2020-02-29] MEDS: MULTIVITAMINS,THERAGRAN 1 UDTAB TABLET GT SCH (09:54)
[2020-02-29] MEDS: DEXAMETHASONE SOD PHOSPHATE 10 MG/ML VIAL IV SCH (09:54)
[2020-02-29] MEDS: ASCORBIC ACID 500 MG TABLET GT SCH (09:54)
--- NOTE | 2020-02-29 12:32 | NUR ---
RN/ICU-LOPRESSOR NOT GIVEN. PT. IS ON LEVOPHED DRIP
[2020-02-29] MEDS ORDERED: ALTEPLASE CATHFLO 2 MG/VIAL ONE (12:34)
[2020-02-29 12:38] LABS: OCCULT BLOOD STOOL POSITIVE (NEGATIVE)
--- NOTE | 2020-02-29 12:58 | NUR ---
RN/ICU- HD RN UNABLE TO DO DIALYSIS ON PT. CATHFLO INSTILLED THRU HD CATH PORTS. WILL DWELL MED. OVERNIGHT PER HD RN LULU.
[2020-02-29] MEDS ORDERED: ALTEPLASE CATHFLO 2 MG/VIAL IV ONE (16:00)
--- NOTE | 2020-02-29 19:00 | NUR ---
CENTRAL OFFICE INSTALLER NOTES PATIENT IN BED, SEDATED, ON [facility] VENTILATOR, TOLERATING SETTINGS ETT SIZE 7.5/23 AT LIP AC 28 TV 500 FIO2 80% peep 10 WELL TOLERATED , PROVIDED SUCTION AND MOUTH HYGIENE, NOTED ASPIRATION PRECAUTIONS, HOB IS ELEVATED, G-TUBE NOTED, INTACT, PATENT, RUNNING NEPHRO AT 20CC/HR NO RESIDUAL NOTED, VENTURA CATH IN PLACE, DRAINING YELLOW URINE BY GRAVITY,IV LINES PATENT, INTACT, RUNNING DIPRIVAN @50MCG/KG, NOREPINEPHRINE @ 0.1 MCG/HR , SAFETY MEASURES IN PLACE, BED IS LOCKED IN LOWEST POSITION, WILL CONT TO MONITOR V/S STABLE AFEBRILE , ON HD CATH ON RIGHT FEMORAL .ALL DUE MEDS GIVEN ORDERED, ALL NEEDS ATTENDED TOO .WILL CONTINUE TO MONITOR PTS.
[2020-03-01] VITALS (66 sets, daily range): BP systolic 57–123; BP diastolic 26–76
[2020-03-01] MEDS: METOPROLOL TARTRATE 25 MG TABLET GT SCH ×2 (00:24→06:38)
[2020-03-01] MEDS: PROPOFOL 100 ML IV PRN ×4 (01:32→15:48)
[2020-03-01 05:12] LABS: BASOPHILS % (AUTO) 0.3 % (0.0-2.0); EOSINOPHILS % (AUTO) 0.3 % (0.0-6.0); HEMATOCRIT 25 % (33-45); HEMOGLOBIN 8.4 g/dL (11.5-14.8); LYMPHOCYTES # (AUTO) 0.4 /CMM (0.8-4.8); LYMPHOCYTES % (AUTO) 3.7 % (20.0-44.0); MEAN CORPUSCULAR HGB CONC 33 g/dl (31.0-36.0); MEAN CORPUSCULAR VOLUME 93 fL (82-100); MONOCYTES # (AUTO) 0.1 /CMM (0.1-1.30); MONOCYTES % (AUTO) 0.8 % (2.0-12.0); NEUTROPHILS # (AUTO) 10.8 /CMM (1.8-8.9); NEUTROPHILS % (AUTO) 94.9 % (43.0-81.0); RED BLOOD CELL COUNT(AUTO) 2.69 MIL/uL (4.0-5.2); WHITE BLOOD COUNT (AUTO) 11.4 K/uL (4.3-11.0)
[2020-03-01 05:30] LABS: PLATELET COUNT (AUTO) 42 /CMM (150-450)
[2020-03-01 05:37] LABS: CALCIUM, SERUM 6.8 mg/dL (8.5-10.1); CREATININE 3.8 mg/dL (0.6-1.3); MAGNESIUM 2.8 mg/dL (1.8-2.4); POTASSIUM 5.6 mmol/L (3.5-5.1)
[2020-03-01 06:34] LABS: BAND % (MANUAL) 2 % (0.0-5.0); LYMPHOCYTES % (MANUAL) 5 % (16-48); METAMYELOCYTES % 1 % (0-0); MONOCYTES % (MANUAL) 1 % (0-11.0); NEUTROPHILS % (MANUAL) 91 (42-76)
[2020-03-01 06:52] LABS: PHOSPHORUS 14.6 mg/dL (2.5-4.9)
--- NOTE | 2020-03-01 07:30 | NUR ---
PATIENT IN BED, SEDATED, ON [facility] VENTILATOR, TOLERATING SETTINGS ETT SIZE 7.5/23 AT LIP AC 28 TV 500 FIO2 80% peep 10 WELL TOLERATED , PROVIDING SUCTION AND MOUTH HYGIENE, NOTED ASPIRATION PRECAUTIONS, HOB IS ELEVATED, G-TUBE NOTED, INTACT, PATENT, RUNNING NEPHRO AT 20CC/HR 70ML RESIDUAL NOTED, VENTURA CATH IN PLACE, DRAINING YELLOW URINE BY GRAVITY,IV LINES PATENT, INTACT, RUNNING DIPRIVAN @50MCG/KG, NOREPINEPHRINE @ 0.1 MCG/HR , SAFETY MEASURES IN PLACE, BED IS LOCKED IN LOWEST POSITION, WILL CONT TO MONITOR V/S STABLE AFEBRILE , ON HD CATH ON RIGHT FEMORAL. WILL CONTINUE TO MONITOR, TURN Q2H AND RESPOSITION, AND REPORT TO MD NEEDED.
[2020-03-01] MEDS: MEROPENEM 500 MG in IV NS 0.9% 100 ML IV SCH ×2 (07:59→20:03)
[2020-03-01] MEDS: DOCUSATE SODIUM LIQ 100 MG/10 ML UDC GT SCH ×2 (08:12→17:06)
[2020-03-01] MEDS: FAMOTIDINE (20 MG) 20 MG TABLET GT SCH (08:12)
[2020-03-01] MEDS: CITRIC ACID/SODIUM CITRATE (BICITRA)15 ML UDC PO SCH ×4 (08:12→21:56)
[2020-03-01] MEDS: FERROUS SULFATE UDC 300 MG/5 ML UDC GT SCH (08:12)
[2020-03-01] MEDS: POLYETHYLENE GLYCOL 3350 17 GM POWD.PACK GT SCH (08:13)
[2020-03-01] MEDS: ASCORBIC ACID 500 MG TABLET GT SCH (08:13)
[2020-03-01] MEDS: PROSOURCE / PROSTAT (PYXIS) 30 ML UDC GT SCH ×2 (08:13→17:06)
[2020-03-01] MEDS: MULTIVITAMINS,THERAGRAN 1 UDTAB TABLET GT SCH (08:13)
[2020-03-01] MEDS: DEXAMETHASONE SOD PHOSPHATE 10 MG/ML VIAL IV SCH (08:13)
[2020-03-01 08:30] LABS: ABG OXYGEN SATURATION 90.9 % (92.0-98.5); ABG PH 7.297 (7.350-7.450); ABG PO2 69.3 mmHg (75.0-100.0); AaDO2 529.4 mmHg; COHb 0.6 % (0.5-1.5); MetHb 0.3 % (0.0-1.5); O2Hb 90.1 % (94.0-97.0); PEEP,BG 10 cm H2O; SITE, ABG Right Radial; VT, ABG 500 mL
[2020-03-01] MEDS: NOREPINEPHRINE 8 MG in IV NS 0.9% 242 ML IV PRN ×3 (10:47→22:09)
[2020-03-01 14:28] LABS: ABG BASE EXCESS -6.7 mmol/L; ABG OXYGEN SATURATION 91.9 % (92.0-98.5); ABG PCO2 48.5 mmHg (35.0-45.0); ABG PH 7.243 (7.350-7.450); ABG PO2 73.6 mmHg (75.0-100.0); AaDO2 518.4 mmHg; COHb 1.4 % (0.5-1.5); MetHb 0.9 % (0.0-1.5); O2Hb 89.8 % (94.0-97.0); PEEP,BG 10 cm H2O; SITE, ABG Right Radial; VT, ABG 450 mL
--- NOTE | 2020-03-01 19:23 | NUR ---
PATIENT IN BED, SEDATED, ON [facility] VENTILATOR, TOLERATING SETTINGS ORDERED, PROVIDED SUCTION AND MOUTH HYGIENE, NOTED ASPIRATION PRECAUTIONS, HOB IS ELEVATED, G-TUBE NOTED, INTACT, PATENT, RUNNING NEPHRO AT 20CC/HR 70ML RESIDUAL NOTED, VENTURA CATH IN PLACE, DRAINING YELLOW URINE BY GRAVITY,IV LINES PATENT, INTACT, RUNNING DIPRIVAN @50MCG/KG, NOREPINEPHRINE @ 0.5 MCG/HR , SAFETY MEASURES IN PLACE, BED IS LOCKED IN LOWEST POSITION, CONTINUED TO MONITOR V/S, STABLE AFEBRILE , INTACT HD CATH ON RIGHT FEMORAL. SKIN WARM FLUSHED. CONTINUED TO MONITOR, TURNED Q2H AND REPOSITIONED, AND REPORT TO MD NEEDED. ORDERS IMPLEMENTED SUCCESSFULLY. ENDORSED TO PM RN.
--- NOTE | 2020-03-01 19:35 | NUR ---
AUTOMATIC CORN GRINDER OPERATOR OPENING NOTES: Rec'd pt in bed, intubated, 7.5/23cm at the lip and sedated. Tolerating vent settings well. No resp distress noted. ST on tele monitor. GT in place patent and infusing Nepro at 20ml/hr. R hand #22 and CYDNEY midline patent and infusing Dip at 50mcg/kg/min and Levo at 0.5mcg/kg/min. Will titrate per protocol. Bilateral soft wrist restraints in place. Mabry catheter in place, patent and draining urine via gravity. Safety measures in place. Will continue to monitor.
--- NOTE | 2020-03-01 20:31 | NUR ---
RT NOTE PT RECEIVED INTUBATED WITH 7.5 @ 23 CM. AMBU BAG @ HOB. BILATERAL CHEST RISE NOTED. SX DONE, ET TUBE SECURED AND PATENT. ALARMS ON AND AUDIBLE. VENT PLUGGED TO RED OUTLET. NO DISTRESS NOTED. WILL CONTINUE TO MONITOR T/O SHIFT. Addendum: 03/01/20 at 2032 by FREDDIE GREEN RT Amended: Links added.
[2020-03-01] MEDS ORDERED: NOREPINEPHRINE 8MG/250ML RTU 250 ML IV ONE (22:06)
--- NOTE | 2020-03-01 23:05 | NUR ---
ISABELLE DAUGHTER OF PT ALONG WITH SON PATRICIA AGREED THAT DURING THE CODE BLUE THAT TOGETHER THEY WISH FOR THE PT "NOT BE IN PAIN ANYMORE AND FOR THE CODE BLUE TO STOP, SO THAT SHE IS NO LONGER IN PAIN." HORACE AT THE TIME CODE BLUE WAS TAKING PLACE, EXPLAIN THAT PT IS CURRENTLY COVID POSITIVE, THAT OUTCOME MAY NOT PRODUCE A POSITIVE RESULT. TOGETHER THEY WISH FOR CODE BLUE TO STOP. MAHIN CARDONA WAS PLACED ON THE PHONE TO VARIFY THAT THEIR WISHES TO STOP THE CODE BE VARIFIED. WHICH IT WAS. CODE STOPPED, WAS PRONOUNCED BY ER DOCTOR AND ICU CHARGE NURSE ED. Addendum: 03/01/20 at 2313 by FLORENTINO PATEL LVN ON THE PHONE WITH FAMILY @4407.
--- NOTE | 2020-03-01 23:20 | NUR ---
ORDNANCE EQUIPMENT WORKER NOTE: 2250: Pt to be found pulseless and w/ no BP. Charge nurse, Ed called to room. Checked for pulse with dopper, no pulse found. 225:Code essie called. See una blue report sheet. 2257: Code blue ended. Pt's family wished for to stop CPR. Pt daughter Sandra and son Lito spoke with Asad STOCKTON and Madyson VILLANUEVA and made wishes known. TOD announced by ER doctor and CN, Ed. Dr. Mercado notified. 2304: Family spoke w/ GUSTAVO and stated they do not have a mortuary at this time chosen. 231: [employer] called. Spoke daisha Escalante. Reference #[id number]. Addendum: 03/01/20 at 2328 by DERIC SHANNON RN 2254: Pt's family spoke [place]/ RICH Coughlin and Asad STOCKTON.
[2020-03-01] MEDS ORDERED: SODIUM BICARBONATE SYR 50 MEQ/50 ML DISP.SYRIN IV ONE ×2 (23:29)
[2020-03-01] MEDS ORDERED: ETOMIDATE 2 MG/ML VIAL IV ONE (23:29)
[2020-03-01] MEDS ORDERED: EPINEPHRINE (1:10,000) SYRINGE 1 MG/10 ML DISP.SYRIN IVP ONE ×2 (23:29)
[2020-03-01] MEDS ORDERED: SUCCINYLCHOLINE CHLORIDE 20 MG/ML VIAL IV ONE (23:29)
== END 2020-03-01 23:30 | DRG 207 ==
LOC: ER 06:01 → TELE1 16:06 → TELE-TD 02-21 03:03 → TELE1 02-23 14:03 → ICUOV 02-24 20:13 → TELE-TD 02-24 20:54 → ICUOV 02-25 05:48 → ICU 02-26 18:32
PROVIDERS: ADMIT Family Medicine; ATTEND Nurse Practitioner Acute Care
PROC: 02HV33Z Insertion of Infusion Device into Superior Vena Cava, Percutaneous Approach (ICD-10-PCS; 2020-02-24)
PROC: B548ZZA Ultrasonography of Superior Vena Cava, Guidance (ICD-10-PCS; 2020-02-24)
PROC: 5A1955Z Respiratory Ventilation, Greater than 96 Consecutive Hours (ICD-10-PCS; principal; 2020-02-25)
PROC: 0BH18EZ Insertion of Endotracheal Airway into Trachea, Via Natural or Artificial Opening Endoscopic (ICD-10-PCS; 2020-02-25)
PROC: 30233N1 Transfusion of Nonautologous Red Blood Cells into Peripheral Vein, Percutaneous Approach (ICD-10-PCS; 2020-02-27)
PROC: 06HY33Z Insertion of Infusion Device into Lower Vein, Percutaneous Approach (ICD-10-PCS; 2020-02-28)
PROC: 5A2204Z Restoration of Cardiac Rhythm, Single (ICD-10-PCS; 2020-03-01)
DX: U07.1 COVID-19 (principal); N17.0 Acute kidney failure with tubular necrosis; G93.41 Metabolic encephalopathy; J96.01 Acute respiratory failure with hypoxia; I21.A1 Myocardial infarction type 2; J12.89 Other viral pneumonia; R53.2 Functional quadriplegia; N39.0 Urinary tract infection, site not specified; E44.0 Moderate protein-calorie malnutrition; D68.59 Other primary thrombophilia; E87.0 Hyperosmolality and hypernatremia; J90 Pleural effusion, not elsewhere classified; E87.2 Acidosis; R47.01 Aphasia; N18.9 Chronic kidney disease, unspecified; I12.9 Hypertensive chronic kidney disease with stage 1 through stage 4 chronic kidney disease, or unspecified chronic kidney disease; D69.6 Thrombocytopenia, unspecified; B96.20 Unspecified Escherichia coli [E. coli] as the cause of diseases classified elsewhere; E87.5 Hyperkalemia; Z86.73 Personal history of transient ischemic attack (TIA), and cerebral infarction without residual deficits; R13.10 Dysphagia, unspecified; Z93.1 Gastrostomy status; Z79.01 Long term (current) use of anticoagulants; D63.8 Anemia in other chronic diseases classified elsewhere; E86.0 Dehydration; E86.1 Hypovolemia; I25.10 Atherosclerotic heart disease of native coronary artery without angina pectoris; F09 Unspecified mental disorder due to known physiological condition; F03.90 Unspecified dementia, unspecified severity, without behavioral disturbance, psychotic disturbance, mood disturbance, and anxiety; Z74.01 Bed confinement status; Z74.09 Other reduced mobility
CPT/HCPCS: 31720; 36415; 36600; 70450-TC; 71045-TC; 76770-TC; 80048-TC; 80053-TC; 80061-TC; 81001; 82248-TC; 82272-TC; 82550-TC; 82553; 82570-TC; 82728-TC; 82803-TC; 82962-TC; 83010; 83540-TC; 83605-TC; 83615-TC; 83735-TC; 83880; 83970; 84100-TC; 84155; 84155-TC; 84165; 84300-TC; 84443-TC; 84478-TC; 84484-TC; 85025-TC; 85378-TC; 85730-TC; 86140-TC; 86850-TC; 86880-TC; 87040-TC; 87081-TC; 87086-TC; 87186-TC; 90935-TC; 92950-TC; 93307-TC; 94003-TC; 94760-TC; 94799-TC; A6403; C1750; C9803; G0378; J0171; J0330; J0696; J1100; J1644; J1815; J1940; J2185; J2997; J3370; J3490; J7030; J7040; J7050; J7060; J7070; P9016-BL; U0003